=== PATIENT | female | born 1975 | race Caucasian/White ===

== ENCOUNTER → 2018-10-30 14:45 | Outpatient (CLI) | payer BC, SELFPAY ==
[2018-10-29 14:13] VITALS: BMI 48.0
--- OUTSIDE RECORDS SUMMARY | 2018-12-16 20:35 | XMS RPT_ITS ---
:1975 Author Organization OHIP Care Team Providers Name Role Phone ARIEL BABCOCK Referring Unavailable ARIEL BABCOCK Attending Unavailable ARIEL BABCOCK Referring Unavailable BABCOCKARIEL DUQUE Referring Unavailable LD BHARGAVI L (MEDICAL TRANSCRIPTION RADIOLOGY) Attending Unavailable CORNIELLO BHARGAVI L (MEDICAL TRANSCRIPTION RADIOLOGY) Attending Unavailable LD BHARGAVI L (MEDICAL TRANSCRIPTION RADIOLOGY) Referring Unavailable Alfonzo Anderson Attending Unavailable Alfonzo Anderson Attending Unavailable Alfonzo Anderson Referring Unavailable Earnest Mercado Attending Unavailable Alfonzo Anderson Attending Unavailable PROBLEMS PROBLEMS DATE TYPE CONDITION / CODE ATTENDING STATUS SOURCE 11/15/2018 Unknown H66.90 - Otitis Justin, Alfonzo Active [place] [facility], unspecified, Community unspecified ear / Hospital H66.90(ICD-10) Repository 11/15/2018 Unknown J40 - Bronchitis, Justin, Alfonzo Active [place] not specified as Community acute or chronic / Hospital J40(ICD-10) Repository 10/29/2018 Unknown J02.9 - Acute Justin, Alfonzo Active [place] pharyngitis, Community unspecified / Hospital J02.9(ICD-10) Repository 08/26/2018 Active Encounter for CORNYESICA, Active [facility] immunization / BHARGAVI L (MEDICAL TRANSCRIPTION RADIOLOGY) [facility] [place] Z23(ICD-10) Repository 05/29/2018 Active 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 [facility] [place] / D50.8(ICD-10) Repository 05/29/2018 Active Dysmenorrhea, NA Active [facility] unspecified / [facility] [place] N94.6(ICD-10) Repository 01/28/2016 Active Pure NA Active [facility] hypercholesterolemi [facility] [place] a, unspecified / Repository E78.00(ICD-10) 04/28/2015 Active Proteinuria, NA Active [facility] unspecified / [facility] [place] R80.9(ICD-10) Repository 05/18/2018 Active 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 [facility] [place] therapy / Repository Z79.899(ICD-10) 05/18/2018 Active Essential (primary) NA Active [facility] hypertension / [facility] [place] I10(ICD-10) Repository 05/18/2018 Active Vitamin D NA Active [facility] deficiency, [facility] [place] unspecified / Repository E55.9(ICD-10) 05/18/2018 Active Other fatigue / NA Active [facility] R53.83(ICD-10) [place] Repository 05/18/2018 Active Type 2 diabetes NA Active [facility] mellitus without [facility] [place] complications / Repository E11.9(ICD-10) PROCEDURES PROCEDURES No Procedure Records FoundRESULTS RESULTS URGENT CARE VISIT Observed: 11/15/2018 Status: F Source: [place] REPORT 5:56 PM [facility] REPOSITORY [facility] [address] [place] [address] 6 [place] [address] OFFICE VISIT Date of Service: 11/15/18 MR#: [id number] Acct: [id number] Name: JACKY LOPEZ Rep #: [id number] : 1975 Provider: Alfonzo GAN Age/Sex: 43/F [facility] [facility] Status: Signed Intake Vital Signs11/15/18 Body Mass Index (BMI) 48.0 Intake Visit Reasons: EARACHE Chief Complaint: Earache Professor Of Counseling Required: No Accompanied by: Self Is patient in pain?: No Allergies No Known Allergies Allergy (Unverified 11/15/18 17:49) Medications glimepiride 2 mg tablet 2 mg PO QAM 01/03/18 [History Confirmed 11/15/18] sitagliptin 50 mg-metformin 1,000 mg tablet 1 tab PO BID 01/03/18 [History Confirmed 11/15/18] cephalexin 500 mg capsule 500 mg PO Q12H 10 Days #20 cap 11/15/18 [Rx Confirmed 11/15/18] fluticasone 50 mcg/actuation nasal spray,suspension 2 spray INTRANASAL DAILY #9.9 g 11/15/18 [Rx Confirmed 11/15/18] PFSH Medical History History of leukemia (Acute) history of hip graphing (Acute) Surgical History History of hip replacement (Acute) Social History Smoking Status: Never smoker alcohol intake: never HPI HPI Chief Complaint: Earache Details: JACKY LOPEZ, is a 43 F who presents to the office today for complaint of right ear pain. Patient states that she typically has an ear infection and uses Flonase which does help however she ran out of Flonase recently and now has had pain to the right ear for the past week. She denies any otorrhea or hearing change/loss. She has had no fever, chills, sweats. No nausea, vomiting, diarrhea. No other associated symptoms or alleviating/aggravating factors. ROS Const Constitutional: No chills, fever(s), fatigue or abnormal sleep pattern ENT ENT: Positive for ear pain; no ear discharge, nasal discharge, nasal congestion or sore throat Resp Respiratory: No shortness of breath or chest congestion Cardio Cardiology: No chest pain at rest, chest pain with exertion or shortness of breath Skin Skin: No wounds or lesions Neuro Neurology: No behavioral changes or confusion Psych Psychiatric: No behavioral changes, No confusion, No abnormal sleep pattern Endo Endocrine: No fatigue Exam Const General: cooperative, healthy appearing [facility] Head: normocephalic, atraumatic Ears: hearing grossly normal bilaterally, EAC's normal, TM abnormal bulging on the right, erythematous on the right and dull on the right Nose: external nose normal Face and sinus: face symmetric, normal facial exam Mouth: oral mucosae normal Throat: posterior oropharynx normal Eyes General: appearance normal, both eyes and all related structures Pupils: PERRL Resp Effort AND Inspection: normal respiratory effort Auscultation: Bilateral: Clear to Auscultation Cardio Palpation: normal PMI Rate: regular rate Rhythm: regular rhythm Skin General: no rashes or lesions noted Neuro General: alert, CN's II-XI intact bilaterally Psych Appearance: grossly normal Mental Status: mental status grossly normal Assessment AND Plan Problems 1. Other non-recurrent acute nonsuppurative otitis media of right ear H65.191 Status Acute Plan Keflex as prescribed today. Encouraged to get plenty of rest, drink lots of clear liquids, and use Tylenol or Ibuprofen (unless contraindicated) for fever and comfort. Patient also educated on other symptomatic management techniques. To be seen in 7-10 days if no improvement; sooner if worsening of symptoms. Patient advised of potential red flags and when appropriate to report to the ED. Patient verbalized understanding and agreement with all the above. Medications New: fluticasone 50 mcg/actuation (Flonase Aller2 sprays Intranasal DAILY 9.9 grams 0RF J40 gy Relief) administer into each nostril Coding Level of Care Code Off vis,est,level 3 Diagnoses Other non-recurrent acute nonsuppurative otitis media of right ear H65.191 Otitis media type: other nonsuppurative Chronicity: acute Laterality: right Recurrence: non-recurrent 11/15/18 1756 <Electronically signed by Alfonzo GAN> Date Alfonzo GAN Cosigner Signature: Date (if applicable) CC: URGENT CARE VISIT Observed: 10/29/2018 Status: F Source: [place] REPORT 3:10 PM [facility] REPOSITORY [facility] [address] [place] [address] OFFICE VISIT Date of Service: 10/29/18 MR#: [id number] Acct: [id number] Name: JCAKY LOPEZ Rep #: [id number] : 1975 Provider: Alfonzo GAN Age/Sex: 43/F Location[place] [facility] Status: Signed Intake Vital Signs10/29/18 Height 5 ft 7 in 10/29/18 Weight: 307 lb 10/29/18 Body Mass Index (BMI) 48.0 Intake Visit Reasons: STREP Professor Of Counseling Required: No Accompanied by: self Is patient in pain?: No Allergies No Known Allergies Allergy (Unverified 10/29/18 14:14) Medications glimepiride 2 mg tablet 2 mg PO QAM 01/03/18 [History Confirmed 01/03/18] sitagliptin 50 mg-metformin 1,000 mg tablet 1 tab PO BID 01/03/18 [History Confirmed 01/03/18] amoxicillin 500 mg capsule 500 mg PO BID 10 Days #20 cap 10/29/18 [Rx Confirmed 10/29/18] PFSH Medical History History of leukemia (Acute) history of hip graphing (Acute) Surgical History History of hip replacement (Acute) Social History Smoking Status: Never smoker alcohol intake: never HPI HPI Details: JACKY LOPEZ, is a 43 F who presents to the office today for complaint of sore throat for the past 24 hours. Patient states that she had a son who was diagnosed with strep throat at the end of last week and then she started to develop symptoms 2 days later. She describes the sore throat as sharp type pain which is made worse with swallowing. She denies fever, chills, sweats. No nausea, vomiting, diarrhea. No other associated symptoms or alleviating/aggravating factors. ROS Const Constitutional: No fever(s), headache(s), anorexia, chills or abnormal sleep pattern ENT ENT: Positive for post nasal drip, sore throat, nasal congestion and nasal discharge; no headache(s) or ear pain Resp Respiratory: No shortness of breath Cardio Cardiology: No irregular heart rhythm or palpitations Gastro GI: No nausea/dyspepsia Neuro Neurology: No headache(s) or behavioral changes Psych Psychiatric: No abnormal sleep pattern, No behavioral changes Exam Const General: cooperative, healthy appearing [facility] Head: normal to inspection Ears: hearing grossly normal bilaterally, TM's normal bilaterally, EAC's normal Nose: external nose normal, nasal discharge clear Mouth: oral mucosae normal Throat: abnormal tonsil bilaterally Resp Effort AND Inspection: normal respiratory effort Auscultation: Bilateral: Clear to Auscultation Cardio Palpation: normal PMI Rate: regular rate Rhythm: regular rhythm Neuro General: CN's II-XI intact bilaterally, alert Psych Appearance: grossly normal Mental Status: mental status grossly normal Results BMSRAPIDSTREPA Office Rapid Strep A Negative Last Edit by Hellen Haley on 10/29/18 14:17 Assessment AND Plan Problems 1. Acute pharyngitis, unspecified etiology J02.9 Status Acute Plan Negative rapid strep in the office today. Amoxicillin as prescribed today due to patient's close proximity with patient with positive strep. Encouraged to get plenty of rest, drink lots of clear liquids, and use Tylenol or Ibuprofen (unless contraindicated) for fever and comfort. Patient also educated on other symptomatic management techniques. To be seen in 7-10 days if no improvement; sooner if worsening of symptoms. Patient advised of potential red flags and when appropriate to report to the ED. Orders Orders: Medications New: Coding Level of Care Code Off vis,est,level 3 Diagnoses Acute pharyngitis, unspecified etiology J02.9 Pharyngitis/tonsillitis etiology: unspecified etiology 10/29/18 1510 <Electronically signed by Alfonzo GAN> Date Alfonzo GAN Cosigner Signature: Date (if applicable) CC: Observed: 10/29/2018 Status: F Source: [place], R/O STREP A 2:00 PM [facility] REPOSITORY CHARLIE Culture No Group A Beta Streptococcus isolated. * This cultures intended use is to screen for Beta Streptococcus A only. All other pathogens and potential pathogens will not be screened for or reported. If a complete workup of all potential pathogens is indicated an order for a routine throat culture is required. Performed By: #### M100.010 #### [facility] [place], [address] PROGRESS Observed: 09/12/2018 Status: COMPLETED Source: [place] 9:47 AM [facility] [place] [place] REPOSITORY HNO ID: [id number] Author: Nurys Ta Cma Service: (none) Author Type: (none) Type: Progress Notes Filed: 09/12/2018 9:47 AM Note Text: Patient informed and verbalizes understanding PROGRESS Observed: 08/26/2018 Status: COMPLETED Source: [place] 2:40 PM [facility] REPOSITORY HNO ID: [id number] Author: Bhargavi Cruz (Dictating Machine Mechanic) Ld Service: (none) Author Type: Nurse Practitioner Type: Progress Notes Filed: 08/26/2018 2:53 PM Note Text: HPI/CC: Jacky Lopez is a 43 year old female who presents for right breast abscess Recheck (follow up) and Imm/Inj (Flu Vaccine). Continues antibiotic. No further fevers, chills, nausea. Right breast abscess improving, decreased drainage and erythema. Reports loose stools from antibiotic- is taking a probiotic. ROS as above, otherwise non-contributory. Reviewed PMHx, PSHx, social Hx, medications and allergies. PHYSICAL EXAMINATION: BP 136/82 Pulse 80 Resp 16 Wt (!) 139.3 kg (307 lb) LMP 08/10/2018 (Approximate) BMI 48.66 kg/m? General appearance: Well appearing, alert, in no acute distress, well-hydrated, well nourished. Skin: right breast fold with erythema, significantly improved since last OV. No warmth to palpation, no drainage or tenderness, soft to palpation. ASSESSMENT/PLAN: 1. Abscess - ICD9: 682.9, ICD10: L02.91 (primary diagnosis) - Continue treatment with Clindamycin - Follow up for recheck in prn - continue probiotic 2. Need for vaccination - ICD9: V05.9, ICD10: Z23 - INFLUENZA VACCINE QUADRIVALENT AGE 3 YRS PLUS + IM Bhargavi Jaffe, STRINGS TEACHER.MEDICAL TRANSCRIPTION RADIOLOGY PROGRESS Observed: 08/26/2018 Status: COMPLETED Source: [place] 2:35 PM [facility] HNO ID: [id number] Author: Noe Peña LPN Service: (none) Author Type: (none) Type: Progress Notes Filed: 08/26/2018 2:53 PM Note Text: 43 year old female here for INACTIVATED INFLUENZA VACCINE. 9143-4155 Season Patient is identified by name and date of : Yes [] CONTRAINDICATIONS color enhanced section Age less than 6 months? No Allergy to eggs, chicken, chicken feathers, or chicken dander? No Allergy to thimerosal (a preservative) or formaldehyde, gelatin? No History of severe reaction to any vaccine component or a previous dose of influenza vaccination? No History of Guillain-[place] Syndrome within 6 weeks after a previous influenza vaccine? No Patient is not moderately or severely ill? No Current temperature greater or equal to 100.4F? No History of Bone Marrow Transplant prior 6 months or solid organ transplant in the past 3 months ? No History of fainting after a prior injection or medical procedure? No- ? If patient has fainted in the past, the CDC recommends sitting or lying down for 15 minutes after the vaccination. [] VERIFICATION color enhanced section Was the answer Yes for any of the above contraindications? No contraindications present. Acceptable to proceed with vaccine. Patient/guardian agrees the above answers are true to the best of their knowledge? Yes Flu vaccine information sheet given? Yes See immunization activity in [facility] for details of immunizations adminstered today. Patient age: [age] year old For The 7507-8383 Flu Season 6-35 months old: Fluzone 0.25 ml - IM (Preservative Free) 3 years of age: Fluzone 0.5 ml - IM (Preservative Free) 3 years and older: Fluzone 0.5 ml- IM-(with Preservatives) 65+ years old: 2-49 years old Fluzone High-Dose 0.5 ml - IM (Preservative Free) FLUMIST- intranasal REMEMBER: If patient is less than 9 years of age and this is the first vaccine of Influenza to be received in any flu season, they should receive a second dose in one months time. CNOV Observed: 08/26/2018 Status: COMPLETED Source: [place] 2:20 PM [facility] REPOSITORY [facility] JACKY LOPEZ ([id number]) 1975 F Date Time Provider Department 08/26/18 2:20 PM BHARGAVI JAFFE ([facility]) FAMP[facility] During your visit today, we recorded the following information about you: Pulse Respiration Blood pressure Weight 80/minute 16/minute 136/82 139.3 kg Noe Peña CARINE 08/26/2018 2:53 PM Signed 43 year old female here for INACTIVATED INFLUENZA VACCINE. Season Patient is identified by name and date of : Yes [] CONTRAINDICATIONS color enhanced section Age less than 6 months? No Allergy to eggs, chicken, chicken feathers, or chicken dander? No Allergy to thimerosal (a preservative) or formaldehyde, gelatin? No History of severe reaction to any vaccine component or a previous dose of influenza vaccination? No History of Guillain-[place] Syndrome within 6 weeks after a previous influenza vaccine? No Patient is not moderately or severely ill? No Current temperature greater or equal to 100.4F? No History of Bone Marrow Transplant prior 6 months or solid organ transplant in the past 3 months ? No History of fainting after a prior injection or medical procedure? No- ? If patient has fainted in the past, the CDC recommends sitting or lying down for 15 minutes after the vaccination. [] VERIFICATION color enhanced section Was the answer Yes for any of the above contraindications? No contraindications present. Acceptable to proceed with vaccine. Patient/guardian agrees the above answers are true to the best of their knowledge? Yes Flu vaccine information sheet given? Yes See immunization activity in [facility] for details of immunizations adminstered today. Patient age: [age] year old For The 9480-3247 Flu Season 6-35 months old: Fluzone 0.25 ml - IM (Preservative Free) 3 years of age: Fluzone 0.5 ml - IM (Preservative Free) 3 years and older: Fluzone 0.5 ml- IM-(with Preservatives) 65+ years old: 2-49 years old Fluzone High-Dose 0.5 ml - IM (Preservative Free) FLUMIST- intranasal REMEMBER: If patient is less than 9 years of age and this is the first vaccine of Influenza to be received in any flu season, they should receive a second dose in one months time. Bhargavi Jaffe APRN.CNP 08/26/2018 2:53 PM Signed HPI/CC: Jacky Lopez is a 43 year old female who presents for right breast abscess Recheck (follow up) and Imm/Inj (Flu Vaccine). Continues antibiotic. No further fevers, chills, nausea. Right breast abscess improving, decreased drainage and erythema. Reports loose stools from antibiotic- is taking a probiotic. ROS as above, otherwise non-contributory. Reviewed PMHx, PSHx, social Hx, medications and allergies. PHYSICAL EXAMINATION: BP 136/82 Pulse 80 Resp 16 Wt (!) 139.3 kg (307 lb) LMP 08/10/2018 (Approximate) BMI 48.66 kg/m? General appearance: Well appearing, alert, in no acute distress, well-hydrated, well nourished. Skin: right breast fold with erythema, significantly improved since last OV. No warmth to palpation, no drainage or tenderness, soft to palpation. ASSESSMENT/PLAN: 1. Abscess - ICD9: 682.9, ICD10: L02.91 (primary diagnosis) - Continue treatment with Clindamycin - Follow up for recheck in prn - continue probiotic 2. Need for vaccination - ICD9: V05.9, ICD10: Z23 - INFLUENZA VACCINE QUADRIVALENT AGE 3 YRS PLUS + IM Bhargavi Jaffe APRN.CNP Referring Provider: BHARGAVI JAFFE (MEDICAL TRANSCRIPTION RADIOLOGY) [[id number]] Allergies As of Date: 08/26/2018 (No Known Allergies) Date Reviewed: 08/26/2018 Reviewed by: Noe Peña LPN - Fully Assessed Reason for Visit: Recheck [92] Cmt: follow up Imm/Inj [58] Cmt: Flu Vaccine Reason For Visit History Recorded Primary Visit Diagnosis:Abscess [L02.91] Other Visit Diagnosis:Need for vaccination [Z23] Order(s):INFLUENZA VACCINE QUADRIVALENT AGE 3 YRS PLUS + IM [85232IST] Order #: [id number] Prescriptions as of 08/26/2018 Sig: CLINDAMYCIN HCL 300 MG CAPSULE Take 1 capsule by mouth three* GLIMEPIRIDE 4 MG TABLET TAKE 1 TABLET BY MOUTH TWICE * FENOFIBRATE MICRONIZED 130 MG* TAKE 1 CAPSULE BY MOUTH ONCE * LOSARTAN 25 MG TABLET Take 1 tablet by mouth once d* METOPROLOL TARTRATE 25 MG TAB* Take 1 tablet by mouth twice * DULAGLUTIDE 1.5 MG/0.5 ML SUB* Inject 1.5 mg subcutaneously * EZETIMIBE 10 MG TABLET Take 1 tablet by mouth once d* FUROSEMIDE 20 MG TABLET Take 1-2 tablets by mouth onc* JANUMET 50 MG-1,000 MG TABLET TAKE 1 TABLET BY MOUTH TWICE * TRIAMTERENE 37.5 MG-HYDROCHLO* TAKE 1 TABLET BY MOUTH ONCE D* PEN NEEDLE, DIABETIC, SAFETY * Use one needle for each dose.* TRIAMCINOLONE ACETONIDE 0.1 %* Apply 1 application to affect* PHENTERMINE 37.5 MG TABLET Take 1 tablet by mouth once d* FLUTICASONE 50 MCG/ACTUATION * Use 2 Sprays in each nostril * ALBUTEROL SULFATE HFA 90 MCG/* Inhale 2 Puffs as instructed * BLOOD SUGAR DIAGNOSTIC STRIPS Test blood sugar(s) 1 times d* LANCETS Test blood sugar(s) 1 times d* FLAXSEED 1,000 MG CAPSULE Take 2,000 mg by mouth once d* OMEGA-3 FATTY ACIDS-FISH OIL * Take 2 capsules by mouth once* BIOTIN 5 MG TABLET Take 2 tablets by mouth once * CHROMIUM 200 MCG TABLET Take 1,000 mcg by mouth once * LANCETS Test blood sugar(s) 1 times d* GLUCOSAMINE COMPLEX ORAL Take by mouth as directed. POTASSIUM ORAL Take by mouth as needed. CHERYL-C ORAL Take by mouth as directed. Problem List As Of Date 08/26/2018 Noted Resolved DM (diabetes mellitus screen) [Z13.1] INVALID FOR*04/21/2015 HTN (hypertension) [I10] INVALID FOR* Diabetes mellitus type 2, controlled, without c*INVALID FOR* Hypercholesterolemia [E78.00] INVALID FOR* Albuminuria [R80.9] INVALID FOR* Morbid (severe) obesity due to excess calories *INVALID FOR* Letter Text [facility] [address] [id number] TO WHOM IT MAY CONCERN: This is to confirm that Jacky Lopez had an appointment and was seen at the [facility] in the Department of Family Medicine Bhargavi Jaffe CNP on 08/26/2018. Please excuse her for this appointment. Sincerely yours, Bhargavi Jaffe CNP Encounter Status:Closed by BHARGAVI JAFFE CNP on 08/26/18 PROGRESS Observed: 08/23/2018 Status: COMPLETED Source: [place] 1:00 PM [facility] REPOSITORY HNO ID: [id number] Author: Bhargavi Doan) Ld Service: (none) Author Type: Nurse Practitioner Type: Progress Notes Filed: 08/23/2018 1:04 PM Note Text: HPI?CC: Jacky Lopez is a 43 year old female who presents for infected boil- right breast. Reports redness, pain, drainage, warmth to touch, pain under right breast. Drainage was white thick with a foul odor. Reports fever, nausea and chills. Attempted manual manipulation and topical antibiotic cream. ROS as above, otherwise non-contributory. Reviewed PMHx, PSHx, social Hx, medications and allergies. PHYSICAL EXAMINATION: BP 136/72 (BP Site: Right Leg, BP Position: Sitting, BP Cuff Size: Large Adult) Pulse 87 Temp (!) 35.6 ?C (96.1 ?F) Resp 12 Wt (!) 140.6 kg (310 lb 0.6 oz) LMP 08/10/2018 (Approximate) SpO2 98% BMI 49.14 kg/m? General appearance: Well appearing, alert, in no acute distress, well-hydrated, well nourished. and Morbidly obese Skin: right breast fold with erythema, edema, warmth and tenderness to palpation. + yellow/green drainage from opening. Lungs: Lungs clear to auscultation. No wheezing, rhonchi, rales Heart: RRR without murmur, gallop, or rubs. No ectopy ASSESSMENT/PLAN: 1. Abscess - ICD9: 682.9, ICD10: L02.91 - Begin treatment with Clindamycin - No lymphangetic streaking, this was defined for patient to watch for and to seek medical care immediately if appears - Follow up for recheck in three days - CLINDAMYCIN HCL 300 MG CAPSULE Bhargavi Jaffe APRN.CNP PROGRESS Observed: 08/23/2018 Status: COMPLETED Source: [place] 11:18 AM [facility] REPOSITORY O ID: [id number] Author: Nurys Ta Cma Service: (none) Author Type: (none) Type: Progress Notes Filed: 08/23/2018 11:21 AM Note Text: [facility] TEAMLET DOCUMENTATION Provider Action/FYI: PSR Action/FYI: Call patient 1 week prior to appointment (added to personal calender) remind of labs (if not completed) Discuss HM (due for DM retinal exam) Teamlet has identified patient by name and date of . Team: Dr. Larry Overton Myself ? Last Office Visit:Visit date not found ? Next Office Visit: Visit date not found ? Last BP/Labs: Blood Pressure: Last 3 Encounter BP Readings: Date: BP: 08/22/2018 136/72 05/21/2018 134/80 05/07/2017 132/84 Lipids: Cholesterol, Total (mg/dL) Date Value 05/18/2018 223 02/08/2017 233 HDL Cholesterol (mg/dL) Date Value 05/18/2018 50 02/08/2017 50 LDL Cholesterol (mg/dL) Date Value 05/18/2018 129 02/08/2017 134 Triglyceride (mg/dL) Date Value 05/18/2018 221 02/08/2017 246 HGB A1C: Lab Results Component Value Date HBA1C 10.5 05/18/2018 HBA1C 10.5 02/08/2017 HBA1C 8.5 01/27/2016 TSH: TSH (uU/mL) Date Value 05/18/2018 1.790 02/08/2017 3.030 ) Care Gap: DM HTN Hypercholesterolemia Plan: ? Confirm PCP / Status - active ? Type of appointment needed: follow up appointment with pcp scheduled for 09/18/2018 call patient and remind of upcoming appointment with labs prior. ? Consultation Appointments: n/a Labs, HM and Immunization: Health Maintenance Due: ONE PNEUMOVAX PRIOR TO AGE 65 due on 1993 BP CONTROLLED (<130/80) due on 1995 DTAP,TDAP,TD(1 - Tdap) due on 1996 DIABETIC FOOT EXAM due on 04/28/2016 DILATED RETINAL EXAM due on 09/02/2016 INFLUENZA(1) due on 07/20/2018 HBA1C due on 08/18/2018 - ordered Nurys Ta Cma CNPTOUTREACH Observed: 08/23/2018 Status: COMPLETED Source: [place] 12:00 AM [facility] REPOSITORY Patient Outreach (INTMWS) JACKY LOPEZ ([id number]) 1975 F Date Time Provider Department 08/23/18 NURYS TA ([facility]) INTMWS During your visit today, we recorded the following information about you: Nurys Ta Cma 08/23/2018 11:21 AM Signed PHMA TEAMLET DOCUMENTATION Provider Action/FYI: PSR Action/FYI: Call patient 1 week prior to appointment (added to personal calender) remind of labs (if not completed) Discuss HM (due for DM retinal exam) Teamlet has identified patient by name and date of . Team: Dr. Larry Overton Myself ? Last Office Visit:Visit date not found ? Next Office Visit: Visit date not found ? Last BP/Labs: Blood Pressure: Last 3 Encounter BP Readings: Date: BP: 08/22/2018 136/72 05/21/2018 134/80 05/07/2017 132/84 Lipids: Cholesterol, Total (mg/dL) Date Value 05/18/2018 223 02/08/2017 233 HDL Cholesterol (mg/dL) Date Value 05/18/2018 50 02/08/2017 50 LDL Cholesterol (mg/dL) Date Value 05/18/2018 129 02/08/2017 134 Triglyceride (mg/dL) Date Value 05/18/2018 221 02/08/2017 246 HGB A1C: Lab Results Component Value Date HBA1C 10.5 05/18/2018 HBA1C 10.5 02/08/2017 HBA1C 8.5 01/27/2016 TSH: TSH (uU/mL) Date Value 05/18/2018 1.790 02/08/2017 3.030 ) Care Gap: DM HTN Hypercholesterolemia Plan: ? Confirm PCP / Status - active ? Type of appointment needed: follow up appointment with pcp scheduled for 09/18/2018 call patient and remind of upcoming appointment with labs prior. ? Consultation Appointments: n/a Labs, HM and Immunization: Health Maintenance Due: ONE PNEUMOVAX PRIOR TO AGE 67 due on 1993 BP CONTROLLED (<130/80) due on 1995 DTAP,TDAP,TD(1 - Tdap) due on 1996 DIABETIC FOOT EXAM due on 04/28/2016 DILATED RETINAL EXAM due on 09/02/2016 INFLUENZA(1) due on 07/20/2018 HBA1C due on 08/18/2018 - ordered Nurys Ta National Business Director Nurys Kotlik [facility] 09/12/2018 9:47 AM Signed Patient informed and verbalizes understanding Allergies As of Date: 08/23/2018 (No Known Allergies) Date Reviewed: 08/22/2018 Reviewed by: Meagan Brady LPN - Fully Assessed Reason for Visit: PHMA/Care Gap Outreach [[id number]] Prescriptions as of 08/23/2018 Sig: CLINDAMYCIN HCL 300 MG CAPSULE Take 1 capsule by mouth three* GLIMEPIRIDE 4 MG TABLET TAKE 1 TABLET BY MOUTH TWICE * FENOFIBRATE MICRONIZED 130 MG* TAKE 1 CAPSULE BY MOUTH ONCE * LOSARTAN 25 MG TABLET Take 1 tablet by mouth once d* METOPROLOL TARTRATE 25 MG TAB* Take 1 tablet by mouth twice * DULAGLUTIDE 1.5 MG/0.5 ML SUB* Inject 1.5 mg subcutaneously * EZETIMIBE 10 MG TABLET Take 1 tablet by mouth once d* FUROSEMIDE 20 MG TABLET Take 1-2 tablets by mouth onc* JANUMET 50 MG-1,000 MG TABLET TAKE 1 TABLET BY MOUTH TWICE * TRIAMTERENE 37.5 MG-HYDROCHLO* TAKE 1 TABLET BY MOUTH ONCE D* PEN NEEDLE, DIABETIC, SAFETY * Use one needle for each dose.* TRIAMCINOLONE ACETONIDE 0.1 %* Apply 1 application to affect* PHENTERMINE 37.5 MG TABLET Take 1 tablet by mouth once d* FLUTICASONE 50 MCG/ACTUATION * Use 2 Sprays in each nostril * ALBUTEROL SULFATE HFA 90 MCG/* Inhale 2 Puffs as instructed * BLOOD SUGAR DIAGNOSTIC STRIPS Test blood sugar(s) 1 times d* LANCETS Test blood sugar(s) 1 times d* FLAXSEED 1,000 MG CAPSULE Take 2,000 mg by mouth once d* OMEGA-3 FATTY ACIDS-FISH OIL * Take 2 capsules by mouth once* BIOTIN 5 MG TABLET Take 2 tablets by mouth once * CHROMIUM 200 MCG TABLET Take 1,000 mcg by mouth once * LANCETS Test blood sugar(s) 1 times d* GLUCOSAMINE COMPLEX ORAL Take by mouth as directed. POTASSIUM ORAL Take by mouth as needed. CHERYL-C ORAL Take by mouth as directed. Problem List As Of Date 08/23/2018 Noted Resolved DM (diabetes mellitus screen) [Z13.1] INVALID FOR*04/21/2015 HTN (hypertension) [I10] INVALID FOR* Diabetes mellitus type 2, controlled, without c*INVALID FOR* Hypercholesterolemia [E78.00] INVALID FOR* Albuminuria [R80.9] INVALID FOR* Morbid (severe) obesity due to excess calories *INVALID FOR* Encounter Status:Closed by NURYS TA CMA on 08/23/18 ANNEMARIE Observed: 08/22/2018 Status: COMPLETED Source: [place] 2:40 PM [facility] RE[facility]ITORY [facility] JACKY LOPEZ ([id number]) 1975 F Date Time Provider Department 08/22/18 2:40 PM BHARGAVI JAFFE (MARY) TAMIE During your visit today, we recorded the following information about you: Temperature Pulse Respiration Blood pressure 96.1 degrees 87/minute 12/minute 136/72 Weight Last Period 140.6 kg 08/10/18 Bhargavi Jaffe APRN.CNP 08/23/2018 1:04 PM Signed HPI?CC: Jacky Lopez is a 43 year old female who presents for infected boil- right breast. Reports redness, pain, drainage, warmth to touch, pain under right breast. Drainage was white thick with a foul odor. Reports fever, nausea and chills. Attempted manual manipulation and topical antibiotic cream. ROS as above, otherwise non-contributory. Reviewed PMHx, PSHx, social Hx, medications and allergies. PHYSICAL EXAMINATION: BP 136/72 (BP Site: Right Leg, BP Position: Sitting, BP Cuff Size: Large Adult) Pulse 87 Temp (!) 35.6 ?C (96.1 ?F) Resp 12 Wt (!) 140.6 kg (310 lb 0.6 oz) LMP 08/10/2018 (Approximate) SpO2 98% BMI 49.14 kg/m? General appearance: Well appearing, alert, in no acute distress, well-hydrated, well nourished. and Morbidly obese Skin: right breast fold with erythema, edema, warmth and tenderness to palpation. + yellow/green drainage from opening. Lungs: Lungs clear to auscultation. No wheezing, rhonchi, rales Heart: RRR without murmur, gallop, or rubs. No ectopy ASSESSMENT/PLAN: 1. Abscess - ICD9: 682.9, ICD10: L02.91 - Begin treatment with Clindamycin - No lymphangetic streaking, this was defined for patient to watch for and to seek medical care immediately if appears - Follow up for recheck in three days - CLINDAMYCIN HCL 300 MG CAPSULE Bhargavi Jaffe APRN.CNP Referring Provider: SELF [200] Allergies As of Date: 08/22/2018 (No Known Allergies) Date Reviewed: 08/22/2018 Reviewed by: Meagan Brady LPN - Fully Assessed Reason for Visit: infected boil [Other] Primary Visit Diagnosis:Abscess [L02.91] Order(s):clindamycin (CLEOCIN) 300 mg capsuleTake 1 capsule by mouth three times daily for 10 days.Disp: 30 capsuleRfl: 0 Prescriptions as of 08/22/2018 Sig: GLIMEPIRIDE 4 MG TABLET TAKE 1 TABLET BY MOUTH TWICE * FENOFIBRATE MICRONIZED 130 MG* TAKE 1 CAPSULE BY MOUTH ONCE * LOSARTAN 25 MG TABLET Take 1 tablet by mouth once d* METOPROLOL TARTRATE 25 MG TAB* Take 1 tablet by mouth twice * DULAGLUTIDE 1.5 MG/0.5 ML SUB* Inject 1.5 mg subcutaneously * EZETIMIBE 10 MG TABLET Take 1 tablet by mouth once d* FUROSEMIDE 20 MG TABLET Take 1-2 tablets by mouth onc* JANUMET 50 MG-1,000 MG TABLET TAKE 1 TABLET BY MOUTH TWICE * TRIAMTERENE 37.5 MG-HYDROCHLO* TAKE 1 TABLET BY MOUTH ONCE D* PEN NEEDLE, DIABETIC, SAFETY * Use one needle for each dose.* TRIAMCINOLONE ACETONIDE 0.1 %* Apply 1 application to affect* FLUTICASONE 50 MCG/ACTUATION * Use 2 Sprays in each nostril * ALBUTEROL SULFATE HFA 90 MCG/* Inhale 2 Puffs as instructed * BLOOD SUGAR DIAGNOSTIC STRIPS Test blood sugar(s) 1 times d* LANCETS Test blood sugar(s) 1 times d* FLAXSEED 1,000 MG CAPSULE Take 2,000 mg by mouth once d* OMEGA-3 FATTY ACIDS-FISH OIL * Take 2 capsules by mouth once* BIOTIN 5 MG TABLET Take 2 tablets by mouth once * CHROMIUM 200 MCG TABLET Take 1,000 mcg by mouth once * LANCETS Test blood sugar(s) 1 times d* GLUCOSAMINE COMPLEX ORAL Take by mouth as directed. POTASSIUM ORAL Take by mouth as needed. CHERYL-C ORAL Take by mouth as directed. CLINDAMYCIN HCL 300 MG CAPSULE Take 1 capsule by mouth three* PHENTERMINE 37.5 MG TABLET Take 1 tablet by mouth once d* Problem List As Of Date 08/22/2018 Noted Resolved DM (diabetes mellitus screen) [Z13.1] INVALID FOR*04/21/2015 HTN (hypertension) [I10] INVALID FOR* Diabetes mellitus type 2, controlled, without c*INVALID FOR* Hypercholesterolemia [E78.00] INVALID FOR* Albuminuria [R80.9] INVALID FOR* Morbid (severe) obesity due to excess calories *INVALID FOR* Prescriptions ordered this encounter Disp Refills Start End CLINDAMYCIN HCL 300 MG CAPSULE 30 c* 0 08/22/2018 09/01/2018 Route: ORAL Sig: Take 1 capsule by mouth three times daily for 10 days. Encounter Status:Closed by BHARGAVI JAFFE CNP on 08/23/18 CNCO Observed: 08/22/2018 Status: COMPLETED Source: [place] 12:00 AM [facility] REPOSITORY Letter Text [facility] [address], [place] [address] Jacky Lopez [phone] [facility] [address] 08/22/2018 To Whom It May Concern: Please excuse patient from work today 08-22-18 PM and tomorrow 08-23-18 due to illness. Patient was seen in our office today 08-22-18. If you have any questions please feel free to call the office [phone]. Thank you, Bhargavi Jaffe CNP/Meagan Brady LPN PROGRESS Observed: 07/24/2018 Status: COMPLETED Source: [place] 10:26 AM [facility] REPOSITORY HNO ID: [id number] Author: Nurys Ta Cma Service: (none) Author Type: (none) Type: Progress Notes Filed: 07/26/2018 8:48 AM Note Text: Please file labs. I spoke with Jacky and reminded her of her upcoming appointment and to get labs done prior. She will do so. I asked about her DM retinal exam and she states she hasn't had one done in a few years. I encouraged her to schedule this appointment. PROGRESS Observed: 07/24/2018 Status: COMPLETED Source: [place] 10:21 AM [facility] REPOSITORY HNO ID: [id number] Author: Nurys Ta Cma Service: (none) Author Type: (none) Type: Progress Notes Filed: 07/26/2018 8:48 AM Note Text: PHMA TEAMLET DOCUMENTATION Provider Action/FYI: Please file labs for upcoming appointment 08/21/18. Please advise if wanting additional labs. PSR Action/FYI: Pended labs - Hgba1c, CMP Call patient to remind of labs, and discuss DM retinal exam. Teamlet has identified patient by name and date of . Team: Dr. Larry Overton ? Last Office Visit:05/31/2018 ? Next Office Visit: 08/21/2018 ? Last BP/Labs: Blood Pressure: Last 3 Encounter BP Readings: Date: BP: 05/21/2018 134/80 05/07/2017 132/84 04/04/2017 130/84 Lipids: Cholesterol, Total (mg/dL) Date Value 05/18/2018 223 02/08/2017 233 HDL Cholesterol (mg/dL) Date Value 05/18/2018 50 02/08/2017 50 LDL Cholesterol (mg/dL) Date Value 05/18/2018 129 02/08/2017 134 Triglyceride (mg/dL) Date Value 05/18/2018 221 02/08/2017 246 HGB A1C: Lab Results Component Value Date HBA1C 10.5 05/18/2018 HBA1C 10.5 02/08/2017 HBA1C 8.5 01/27/2016 TSH: TSH (uU/mL) Date Value 05/18/2018 1.790 02/08/2017 3.030 ) Care Gap: DM - Last HGBA1C is NOT under 9% HTN Plan: ? Confirm PCP / Status - active ? Type of appointment needed: none - has upcoming appointment viki. Needs labs prior (orders pending) ? Consultation Appointments: n/a Labs, HM and Immunization: Health Maintenance Due: ONE PNEUMOVAX PRIOR TO AGE 67 due on 1993 BP CONTROLLED (<130/80) due on 1995 - recheck at upcoming appointment DTAP,TDAP,TD(1 - Tdap) due on 1996 DIABETIC FOOT EXAM due on 04/28/2016 DILATED RETINAL EXAM due on 09/02/2016 INFLUENZA(1) due on 07/20/2018 Nurys Ta Cma CNPTOUTREACH Observed: 07/24/2018 Status: COMPLETED Source: [place] 12:00 AM [facility] REPOSITORY Patient Outreach (FAMPWS) JACKY LOPEZ ([id number]) 1975 F Date Time Provider Department 07/24/18 NURYS TA ([facility]) TAMIE During your visit today, we recorded the following information about you: Nurys Ta [facility] 07/26/2018 8:48 AM Signed PHMA TEAMLET DOCUMENTATION Provider Action/FYI: Please file labs for upcoming appointment 08/21/18. Please advise if wanting additional labs. PSR Action/FYI: Pended labs - Hgba1c, CMP Call patient to remind of labs, and discuss DM retinal exam. Teamlet has identified patient by name and date of . Team: Dr. Larry Overton ? Last Office Visit:05/31/2018 ? Next Office Visit: 08/21/2018 ? Last BP/Labs: Blood Pressure: Last 3 Encounter BP Readings: Date: BP: 05/21/2018 134/80 05/07/2017 132/84 04/04/2017 130/84 Lipids: Cholesterol, Total (mg/dL) Date Value 05/18/2018 223 02/08/2017 233 HDL Cholesterol (mg/dL) Date Value 05/18/2018 50 02/08/2017 50 LDL Cholesterol (mg/dL) Date Value 05/18/2018 129 02/08/2017 134 Triglyceride (mg/dL) Date Value 05/18/2018 221 02/08/2017 246 HGB A1C: Lab Results Component Value Date HBA1C 10.5 05/18/2018 HBA1C 10.5 02/08/2017 HBA1C 8.5 01/27/2016 TSH: TSH (uU/mL) Date Value 05/18/2018 1.790 02/08/2017 3.030 ) Care Gap: DM - Last HGBA1C is NOT under 9% HTN Plan: ? Confirm PCP / Status - active ? Type of appointment needed: none - has upcoming appointment viki. Needs labs prior (orders pending) ? Consultation Appointments: n/a Labs, HM and Immunization: Health Maintenance Due: ONE PNEUMOVAX PRIOR TO AGE 67 due on 1993 BP CONTROLLED (<130/80) due on 1995 - recheck at upcoming appointment DTAP,TDAP,TD(1 - Tdap) due on 1996 DIABETIC FOOT EXAM due on 04/28/2016 DILATED RETINAL EXAM due on 09/02/2016 INFLUENZA(1) due on 07/20/2018 Nurys Kotlik National Business Director Nurys Kotlik National Business Director 07/26/2018 8:48 AM Signed Please file labs. I spoke with Jacky and reminded her of her upcoming appointment and to get labs done prior. She will do so. I asked about her DM retinal exam and she states she hasn't had one done in a few years. I encouraged her to schedule this appointment. Allergies As of Date: 07/24/2018 (No Known Allergies) Date Reviewed: 05/21/2018 Reviewed by: Jodi Patel LPN - Fully Assessed Reason for Visit: PHMA/Care Gap Outreach [[id number]] Primary Visit Diagnosis:Controlled type 2 diabetes mellitus without complication, unspecified whether adjuster leader insulin use (HCC) [E11.9] Other Visit Diagnoses:Essential hypertension [I10] Hypercholesterolemia [E78.00] Order(s):HGB A1C [DQUOK8P] Order #: [id number] FUTURE COMP METABOLIC PANEL [SQCMP] Order #: [id number] FUTURE LIPID PANEL BASIC [SQLIPB] Order #: [id number] FUTURE Prescriptions as of 07/24/2018 Sig: GLIMEPIRIDE 4 MG TABLET TAKE 1 TABLET BY MOUTH TWICE * FENOFIBRATE MICRONIZED 130 MG* TAKE 1 CAPSULE BY MOUTH ONCE * LOSARTAN 25 MG TABLET Take 1 tablet by mouth once d* METOPROLOL TARTRATE 25 MG TAB* Take 1 tablet by mouth twice * DULAGLUTIDE 1.5 MG/0.5 ML SUB* Inject 1.5 mg subcutaneously * EZETIMIBE 10 MG TABLET Take 1 tablet by mouth once d* FUROSEMIDE 20 MG TABLET Take 1-2 tablets by mouth onc* JANUMET 50 MG-1,000 MG TABLET TAKE 1 TABLET BY MOUTH TWICE * TRIAMTERENE 37.5 MG-HYDROCHLO* TAKE 1 TABLET BY MOUTH ONCE D* PEN NEEDLE, DIABETIC, SAFETY * Use one needle for each dose.* TRIAMCINOLONE ACETONIDE 0.1 %* Apply 1 application to affect* PHENTERMINE 37.5 MG TABLET Take 1 tablet by mouth once d* FLUTICASONE 50 MCG/ACTUATION * Use 2 Sprays in each nostril * ALBUTEROL SULFATE HFA 90 MCG/* Inhale 2 Puffs as instructed * BLOOD SUGAR DIAGNOSTIC STRIPS Test blood sugar(s) 1 times d* LANCETS Test blood sugar(s) 1 times d* FLAXSEED 1,000 MG CAPSULE Take 2,000 mg by mouth once d* OMEGA-3 FATTY ACIDS-FISH OIL * Take 2 capsules by mouth once* BIOTIN 5 MG TABLET Take 2 tablets by mouth once * CHROMIUM 200 MCG TABLET Take 1,000 mcg by mouth once * LANCETS Test blood sugar(s) 1 times d* GLUCOSAMINE COMPLEX ORAL Take by mouth as directed. POTASSIUM ORAL Take by mouth as needed. CHERYL-C ORAL Take by mouth as directed. Problem List As Of Date 07/24/2018 Noted Resolved DM (diabetes mellitus screen) [Z13.1] INVALID FOR*04/21/2015 HTN (hypertension) [I10] INVALID FOR* Diabetes mellitus type 2, controlled, without c*INVALID FOR* Hypercholesterolemia [E78.00] INVALID FOR* Albuminuria [R80.9] INVALID FOR* Morbid (severe) obesity due to excess calories *INVALID FOR* Encounter Status:Closed by NURYS TA CMA on 07/26/18 PROGRESS Observed: 05/29/2018 Status: COMPLETED Source: [place] 10:41 AM [facility] RE[facility] O ID: [id number] Author: Fredi Voss Service: (none) Author Type: Candy Cooker Helper Type: Progress Notes Filed: 05/29/2018 10:41 AM Note Text: Radiology Service Progress Note PATIENT NAME: Jacky Lopez DATE OF SERVICE: May 29, 2018 TIME: 10:41 AM PATIENT IDENTITY VERIFICATION COMPLETED USING TWO (2) METHODS: Patient confirmed name verbally and Date of . PATIENT GENDER DATA: Female. status: : No status: N/A PATIENT RELEVANT IMPLANT DATA REVIEWED: Not Applicable RADIOLOGY DEPARTMENT: Ultrasound PERIPHERAL IV DATA: Not applicable SIGNED BY: FREDI VOSS RDMS RVAbraham May 29, 2018 10:41 AM US FEMALE PELVIS Observed: 05/29/2018 Status: F Source: [place] TRANSVA 10:39 AM [facility] REPOSITORY * * *Final Report* * * DATE OF EXAM: May 29 2018 10:39AM [facility] 1060 - US FEMALE PELVIS TRANSVAG / PROCEDURE REASON: multiple diagnoses * * * * Physician Interpretation * * * * EXAMINATION: US FEMALE PELVIS TRANSVAG CLINICAL HISTORY: Deficiency anemia. Dysmenorrhea Comparison: None RESULT: Transabdominal and endovaginal scans were performed. The uterus measures 10.7 x 5.9 x 4.7 cm. The endometrium measures 1.7 cm. Appearance may be secondary to secretory phase of cycle. The endomyometrial junction is somewhat poorly defined. Left ovary is not visualized with the transabdominal or endovaginal probe. Right ovary measures 3.7 x 3.2 x 4.5 cm. Simple 3.1 cm cyst is seen within it. Numerous nabothian cysts are noted. No free pelvic fluid. IMPRESSION: Thickened endometrium, may be secondary to secretory phase of cycle. Endomyometrial junction is somewhat poorly defined. Adenomyosis is a diagnostic possibility. MRI may be helpful for further evaluation if clinically indicated in this patient with anemia. Nonvisualization of the left ovary. Simple right ovarian cyst is likely simple follicular cyst. Drug Room Operator: LESLIE Transcribe Date/Time: May 29 2018 12:38P Dictated by : YOVANY STROUD MD This examination was interpreted and the report reviewed and electronically signed by: YOVANY STROUD MD on May 29 2018 12:43PM EST [id number] CNCO Observed: 05/29/2018 Status: COMPLETED Source: [place] 12:00 AM [facility] REPOSITORY Letter Text Dear Jacky Lpoez: How to activate your [facility] [employer] Account 1. Visit the [employer] Signup page at [email or web address] 2. Identify yourself using your one-time use activation code: [email or web address] 3. Follow the on-screen prompts to choose your own secure username and password The following information will be necessary to access your account for the first time: Information needed for sign-up: Your custom activation code used one-time only for the initial account set-up. Your date of The last 4 digits of your social security number What to do next: Fill in the requested information on the Identify Yourself Form at [email or web address] , click Next. Create your login and password, choose a [employer] ID and password that will be easy for you to use, but impossible for anyone else to guess. Pick a security question that will assist you in the event you forget your password the next time you log-on. If you have difficulty activating your account, please call our [employer] helpline at [phone] or toll free at . We hope you enjoy using [employer]! Kindest Regards, [facility] [employer] Team PROGRESS Observed: 05/21/2018 Status: COMPLETED Source: [place] 8:58 AM [facility] REPOSITORY HNO ID: [id number] Author: Ariel Babcock Service: (none) Author Type: Physician Type: Progress Notes Filed: 05/21/2018 9:42 AM Note Text: Patient presents with: Follow Up: 3 month weight HPI: Jacky Lopez is a 42 year old female who presents to the office today for review of health conditions. Concerns today: Morbid obesity, trying to cut out sugars and gluten from her diet more consistently, trying to start a probiotic Vitamin d deficiency, currently hasn;t restarted her vitamin d supplement Dyspareunia, comes and goes, heavy menstrual cycles for years, iron deficiency anemia is slightly worse, unable to tolerate oral iron supplement due to Nausea/GI upset. Hasn't seen ORTHOPHOTOGRAPHY TECHNICIAN recently, knows needs to schedule an appt Admits to not taking care of herself after her grandmother in Dec, she was like a mother to her Leg swelling, worse in summer, sits with legs down a lot at her new job at the [employer] Ms. Lopez has past history of diabetes. Since our last visit she denies excessive thirst or increased frequency of urination, chest pain or dyspnea , new or unusual visual symptoms and low sugar/hypoglycemic reactions. Follows a diabetic diet some of the time. She is not compliant with medication(s) but is tolerating med(s) without any side effects. She reports checking her glucose on a infrequent to not at all basis schedule. Patient's last HgA1C was Hemoglobin A1C (%) Date Value 05/18/2018 10.5 02/08/2017 10.5 ) Last Ophthalmology exam was within the past 12 months Ms. Lopez reports history of hyperlipidemia. Current therapy includes fenobibrate (Tricor) mg. Denies side effects of muscle weakness or achiness. Her most recent lipid panels are reviewed. Cholesterol, Total (mg/dL) Date Value 05/18/2018 223 HDL Cholesterol (mg/dL) Date Value 05/18/2018 50 LDL Cholesterol (mg/dL) Date Value 05/18/2018 129 Triglyceride (mg/dL) Date Value 05/18/2018 221 Ms. Lopez indicates a history of hypertension and states that she is feeling well and denies any symptoms referable to elevated blood pressure. Specifically denies headache, chest pain, palpitations, dyspnea and peripheral edema. Patient denies any side effects of her medication(s) and is compliant with their regimen. Last 3 Encounter BP Readings: Date: BP: 05/21/2018 134/80 05/07/2017 132/84 04/04/2017 130/84 She watches her diet for sodium, low fat and low cholesterol some of the time. She does not check BP's generally. Jacky gets minimal exercise. 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 Social History Main Topics Smoking status: Never Smoker Smokeless tobacco: Never Used Alcohol use: Yes Comment: Rarely Drug use: No Sexual activity: Yes Partners with: Male control/protection: None FAMILY HISTORY Problem Relation Age of Onset - Hypertension Maternal Grandmother - Hypertension Paternal Grandmother - Hypertension Mother - Stroke Paternal Grandmother - Thyroid Maternal Grandmother - Heart Maternal Grandmother AL - Heart Paternal Grandfather AL - Cancer Maternal Grandfather Melanoma Allergies: ALLERGIES No Known Allergies Current Meds: glimepiride (AMARYL) 4 mg tablet TAKE 1 TABLET BY MOUTH TWICE A DAY WITH MEALS JANUMET 50-1,000 mg per tablet TAKE 1 TABLET BY MOUTH TWICE DAILY WITH MEALS. losartan (COZAAR) 25 mg tablet Take 1 tablet by mouth once daily. triamterene-hydrochlorothiazide (MAXZIDE-25) 37.5-25 mg per tablet TAKE 1 TABLET BY MOUTH ONCE DAILY. dulaglutide (TRULICITY) 0.75 mg/0.5 mL pnij Inject 0.75 mg subcutaneously once each week. Inject dose once per week. Discard Pen After metoprolol tartrate, short acting, (LOPRESSOR) 25 mg tablet TAKE 1 TABLET BY MOUTH TWICE DAILY. triamcinolone acetonide (KENALOG) 0.1 % cream Apply 1 application to affected area twice daily as needed (rash on chest). Apply sparingly to area for rash/itching. fluticasone (FLONASE) 50 mcg/actuation nasal spray Use 2 Sprays in each nostril once daily. albuterol HFA (PROAIR HFA) 90 mcg/actuation inhaler Inhale 2 Puffs as instructed every 4 hours as needed. blood sugar diagnostic (BLOOD GLUCOSE TEST) test strip Test blood sugar(s) 1 times daily. Dx: DM2. Insulin: No Lancets lancets Test blood sugar(s) 1 times daily. Dx: Type 2 DM - Uncontrolled E11.65 Insulin: No flaxseed 1,000 mg cap Take 2,000 mg by mouth once daily. Brisbin-3 Fatty Acids, FISH OIL, (FISH OIL) 360-1,200 mg cap Take 2 capsules by mouth once daily. biotin 5 mg tab Take 2 tablets by mouth once daily. Chromium 200 mcg tab Take 1,000 mcg by mouth once daily. Lancets lancets Test blood sugar(s) 1 times daily. Dx: DM2. Insulin: No GLUCOSAMINE HCL AND SULFATE (GLUCOSAMINE COMPLEX ORAL) Take by mouth as directed. POTASSIUM ORAL Take by mouth as needed. ASCORBIC ACID (CHERYL-C ORAL) Take by mouth as directed. CONTRAVE 8-90 mg TbER TAKE 2 TABLETS BY MOUTH TWICE DAILY IN THE MORNING AND EVENING Fenofibrate Micronized 130 mg capsule Take 1 capsule by mouth once daily. Insulin Safety Kennard, Disp, (BD AUTOSHIELD PEN NEEDLE) 29 gauge x 3/16 ndle Use one needle for each dose. 2/day Phentermine HCl (ADIPEX-P) 37.5 mg tablet Take 1 tablet by mouth once daily. BMI 50 Review of Systems: The remainder of the review of systems is negative. PE: 05/21/18 0838 BP: 134/80 Pulse: 64 Resp: 20 Temp: 36.5 ?C (97.7 ?F) TempSrc: Left Tympanic Weight: (!) 142 kg (313 lb) Gen: AANDO, NAD, non-toxic appearing, Pleasant, cooperative, obese HEENT: NT/AC, PERRLA, EOMs intact b/l, nares clear and patent b/l, pharynx without erythema, exudate or lesions. Uvula midline.MMM Neck: supple, No cervical LAD, no thyromegaly, no carotid bruits CV: RRR, normal S1 and S2, no murmurs, no gallops, no rubs, Pulses 2+ and symmetric in UE and LE b/l Lungs: normal respiratory effort, CTA b/l, no wheezing or rhonchi or rales Abd: soft, NT, ND, +BS, no hepatosplenomegaly MS: FROM all 4 extremities Neuro: CN II-XII intact b/l, strength 5/5 b/l UE and LE, DTRs 2/4 UE and LE, sensation intact. Skin: warm, dry, intact, No rashes or lesions on exposed skin. Obese, non pitting leg edema, no calf pain Foot exam: Monofilament normal on right and left feet. ASSESSMENT/PLAN: 1. Uncontrolled type 2 diabetes mellitus without complication, without long-term current use of insulin (HCC) - ICD9: 250.02, ICD10: E11.65 (primary diagnosis) uncontrolled Poor adherence to plan of care. - Increase Trulicity - Blood glucose monitoring on a three times a day schedule - LOSARTAN 25 MG TABLET - DULAGLUTIDE 1.5 MG/0.5 ML SUBCUTANEOUS PEN INJECTOR 2. Hypercholesterolemia - ICD9: 272.0, ICD10: E78.00 - suboptimal control - Begin treatment with ezetimibe (Zetia) 10 mg - Encouraged following a low fat, low cholesterol diet. - Check fasting lipid panel and ALT in 12 weeks. - EZETIMIBE 10 MG TABLET 3. Hypertriglyceridemia - ICD9: 272.1, ICD10: E78.1 - poor control - Begin treatment with ezetimibe (Zetia) 10 mg - Encouraged following a low fat, low cholesterol diet. - Discussed the benefits of regular aerobic exercise and weight loss. - EZETIMIBE 10 MG TABLET 4. Albuminuria - ICD9: 791.0, ICD10: R80.9 - rx refilled, needs better blood glucose control as d/w her today - LOSARTAN 25 MG TABLET 5. Elevated LFTs - ICD9: 790.6, ICD10: R94.5 - related to diabetes and fatty liver, needs better glucose control 6. Essential hypertension - ICD9: 401.9, ICD10: I10 - good control - Continue current medication(s) - Encouraged dietary sodium restriction/DASH diet - Recommended regular aerobic exercise. - Recommend home blood pressure monitoring, to bring results in on next visit - Discussed need and benefit for weight loss. - Goal of BP <130/80 - METOPROLOL TARTRATE 25 MG TABLET 7. Other iron deficiency anemia - ICD9: 280.8, ICD10: D50.8 - pelvic US and f/u with ORTHOPHOTOGRAPHY TECHNICIAN - US FEMALE PELVIS TRANSABD LTD - US FEMALE PELVIS TRANSVAG 8. Dysmenorrhea - ICD9: 625.3, ICD10: N94.6 - see above - US FEMALE PELVIS TRANSABD LTD - US FEMALE PELVIS TRANSVAG 9. Bilateral leg edema - ICD9: 782.3, ICD10: R60.0 - rx prn as below - FUROSEMIDE 20 MG TABLET Ariel Babcock DO To ER if develops chest pain, shortness of breath, or severe worsening of symptoms. Discussed risks, benefits, alternatives, and potential side effects of medications. Patient expressed understanding and agreed with the plan. Ariel Babcock DO [address] [place] [address] CNOV Observed: 05/21/2018 Status: COMPLETED Source: [place] 8:40 AM [facility] REPOSITORY Office Visit (FAMPWS) JACKY LOPEZ ([id number]) 1975 F Date Time Provider Department 05/21/18 8:40 AM ARIEL BABCOCK FAMPWS During your visit today, we recorded the following information about you: Temperature Pulse Respiration Blood pressure 97.7 degrees 64/minute 20/minute 134/80 Weight Last Period 142 kg 04/22/18 Ariel Babcock DO 05/21/2018 9:42 AM Signed Patient presents with: Follow Up: 3 month weight HPI: Jacky Lopez is a 42 year old female who presents to the office today for review of health conditions. Concerns today: Morbid obesity, trying to cut out sugars and gluten from her diet more consistently, trying to start a probiotic Vitamin d deficiency, currently hasn;t restarted her vitamin d supplement Dyspareunia, comes and goes, heavy menstrual cycles for years, iron deficiency anemia is slightly worse, unable to tolerate oral iron supplement due to Nausea/GI upset. Hasn't seen ORTHOPHOTOGRAPHY TECHNICIAN recently, knows needs to schedule an appt Admits to not taking care of herself after her grandmother in Dec, she was like a mother to her Leg swelling, worse in summer, sits with legs down a lot at her new job at the [employer] Ms. Loepz has past history of diabetes. Since our last visit she denies excessive thirst or increased frequency of urination, chest pain or dyspnea , new or unusual visual symptoms and low sugar/hypoglycemic reactions. Follows a diabetic diet some of the time. She is not compliant with medication(s) but is tolerating med(s) without any side effects. She reports checking her glucose on a infrequent to not at all basis schedule. Patient's last HgA1C was Hemoglobin A1C (%) Date Value 05/18/2018 10.5 02/08/2017 10.5 ) Last Ophthalmology exam was within the past 12 months Ms. Lopez reports history of hyperlipidemia. Current therapy includes fenobibrate (Tricor) mg. Denies side effects of muscle weakness or achiness. Her most recent lipid panels are reviewed. Cholesterol, Total (mg/dL) Date Value 05/18/2018 223 HDL Cholesterol (mg/dL) Date Value 05/18/2018 50 LDL Cholesterol (mg/dL) Date Value 05/18/2018 129 Triglyceride (mg/dL) Date Value 05/18/2018 221 Ms. Lopez indicates a history of hypertension and states that she is feeling well and denies any symptoms referable to elevated blood pressure. Specifically denies headache, chest pain, palpitations, dyspnea and peripheral edema. Patient denies any side effects of her medication(s) and is compliant with their regimen. Last 3 Encounter BP Readings: Date: BP: 05/21/2018 134/80 05/07/2017 132/84 04/04/2017 130/84 She watches her diet for sodium, low fat and low cholesterol some of the time. She does not check BP's generally. Jacky gets minimal exercise. 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 Social History Main Topics Smoking status: Never Smoker Smokeless tobacco: Never Used Alcohol use: Yes Comment: Rarely Drug use: No Sexual activity: Yes Partners with: Male control/protection: None FAMILY HISTORY Problem Relation Age of Onset - Hypertension Maternal Grandmother - Hypertension Paternal Grandmother - Hypertension Mother - Stroke Paternal Grandmother - Thyroid Maternal Grandmother - Heart Maternal Grandmother AL - Heart Paternal Grandfather AL - Cancer Maternal Grandfather Melanoma Allergies: ALLERGIES No Known Allergies Current Meds: glimepiride (AMARYL) 4 mg tablet TAKE 1 TABLET BY MOUTH TWICE A DAY WITH MEALS JANUMET 50-1,000 mg per tablet TAKE 1 TABLET BY MOUTH TWICE DAILY WITH MEALS. losartan (COZAAR) 25 mg tablet Take 1 tablet by mouth once daily. triamterene-hydrochlorothiazide (MAXZIDE-25) 37.5-25 mg per tablet TAKE 1 TABLET BY MOUTH ONCE DAILY. dulaglutide (TRULICITY) 0.75 mg/0.5 mL pnij Inject 0.75 mg subcutaneously once each week. Inject dose once per week. Discard Pen After metoprolol tartrate, short acting, (LOPRESSOR) 25 mg tablet TAKE 1 TABLET BY MOUTH TWICE DAILY. triamcinolone acetonide (KENALOG) 0.1 % cream Apply 1 application to affected area twice daily as needed (rash on chest). Apply sparingly to area for rash/itching. fluticasone (FLONASE) 50 mcg/actuation nasal spray Use 2 Sprays in each nostril once daily. albuterol HFA (PROAIR HFA) 90 mcg/actuation inhaler Inhale 2 Puffs as instructed every 4 hours as needed. blood sugar diagnostic (BLOOD GLUCOSE TEST) test strip Test blood sugar(s) 1 times daily. Dx: DM2. Insulin: No Lancets lancets Test blood sugar(s) 1 times daily. Dx: Type 2 DM - Uncontrolled E11.65 Insulin: No flaxseed 1,000 mg cap Take 2,000 mg by mouth once daily. Brisbin-3 Fatty Acids, FISH OIL, (FISH OIL) 360-1,200 mg cap Take 2 capsules by mouth once daily. biotin 5 mg tab Take 2 tablets by mouth once daily. Chromium 200 mcg tab Take 1,000 mcg by mouth once daily. Lancets lancets Test blood sugar(s) 1 times daily. Dx: DM2. Insulin: No GLUCOSAMINE HCL AND SULFATE (GLUCOSAMINE COMPLEX ORAL) Take by mouth as directed. POTASSIUM ORAL Take by mouth as needed. ASCORBIC ACID (CHERYL-C ORAL) Take by mouth as directed. CONTRAVE 8-90 mg TbER TAKE 2 TABLETS BY MOUTH TWICE DAILY IN THE MORNING AND EVENING Fenofibrate Micronized 130 mg capsule Take 1 capsule by mouth once daily. Insulin Safety Kennard, Disp, (BD AUTOSHIELD PEN NEEDLE) 29 gauge x 3/16 ndle Use one needle for each dose. 2/day Phentermine HCl (ADIPEX-P) 37.5 mg tablet Take 1 tablet by mouth once daily. BMI 50 Review of Systems: The remainder of the review of systems is negative. PE: 05/21/18 0838 BP: 134/80 Pulse: 64 Resp: 20 Temp: 36.5 ?C (97.7 ?F) TempSrc: Left Tympanic Weight: (!) 142 kg (313 lb) Gen: AANDO, NAD, non-toxic appearing, Pleasant, cooperative, obese HEENT: NT/AC, PERRLA, EOMs intact b/l, nares clear and patent b/l, pharynx without erythema, exudate or lesions. Uvula midline.MMM Neck: supple, No cervical LAD, no thyromegaly, no carotid bruits CV: RRR, normal S1 and S2, no murmurs, no gallops, no rubs, Pulses 2+ and symmetric in UE and LE b/l Lungs: normal respiratory effort, CTA b/l, no wheezing or rhonchi or rales Abd: soft, NT, ND, +BS, no hepatosplenomegaly MS: FROM all 4 extremities Neuro: CN II-XII intact b/l, strength 5/5 b/l UE and LE, DTRs 2/4 UE and LE, sensation intact. Skin: warm, dry, intact, No rashes or lesions on exposed skin. Obese, non pitting leg edema, no calf pain Foot exam: Monofilament normal on right and left feet. ASSESSMENT/PLAN: 1. Uncontrolled type 2 diabetes mellitus without complication, without long-term current use of insulin (HCC) - ICD9: 250.02, ICD10: E11.65 (primary diagnosis) uncontrolled Poor adherence to plan of care. - Increase Trulicity - Blood glucose monitoring on a three times a day schedule - LOSARTAN 25 MG TABLET - DULAGLUTIDE 1.5 MG/0.5 ML SUBCUTANEOUS PEN INJECTOR 2. Hypercholesterolemia - ICD9: 272.0, ICD10: E78.00 - suboptimal control - Begin treatment with ezetimibe (Zetia) 10 mg - Encouraged following a low fat, low cholesterol diet. - Check fasting lipid panel and ALT in 12 weeks. - EZETIMIBE 10 MG TABLET 3. Hypertriglyceridemia - ICD9: 272.1, ICD10: E78.1 - poor control - Begin treatment with ezetimibe (Zetia) 10 mg - Encouraged following a low fat, low cholesterol diet. - Discussed the benefits of regular aerobic exercise and weight loss. - EZETIMIBE 10 MG TABLET 4. Albuminuria - ICD9: 791.0, ICD10: R80.9 - rx refilled, needs better blood glucose control as d/w her today - LOSARTAN 25 MG TABLET 5. Elevated LFTs - ICD9: 790.6, ICD10: R94.5 - related to diabetes and fatty liver, needs better glucose control 6. Essential hypertension - ICD9: 401.9, ICD10: I10 - good control - Continue current medication(s) - Encouraged dietary sodium restriction/DASH diet - Recommended regular aerobic exercise. - Recommend home blood pressure monitoring, to bring results in on next visit - Discussed need and benefit for weight loss. - Goal of BP <130/80 - METOPROLOL TARTRATE 25 MG TABLET 7. Other iron deficiency anemia - ICD9: 280.8, ICD10: D50.8 - pelvic US and f/u with ORTHOPHOTOGRAPHY TECHNICIAN - US FEMALE PELVIS TRANSABD LTD - US FEMALE PELVIS TRANSVAG 8. Dysmenorrhea - ICD9: 625.3, ICD10: N94.6 - see above - US FEMALE PELVIS TRANSABD LTD - US FEMALE PELVIS TRANSVAG 9. Bilateral leg edema - ICD9: 782.3, ICD10: R60.0 - rx prn as below - FUROSEMIDE 20 MG TABLET Ariel Babcock DO To ER if develops chest pain, shortness of breath, or severe worsening of symptoms. Discussed risks, benefits, alternatives, and potential side effects of medications. Patient expressed understanding and agreed with the plan. Ariel Babcock DO [address] [place] [address] Referring Provider: ARIEL BABCOCK [[id number]] Allergies As of Date: 05/21/2018 (No Known Allergies) Date Reviewed: 05/21/2018 Reviewed by: Jodi Patel LPN - Fully Assessed Reason for Visit: Follow Up [171] Cmt: 3 month weight Primary Visit Diagnosis:Uncontrolled type 2 diabetes mellitus without complication, without long-term current use of insulin (HCC) [E11.65] Other Visit Diagnoses:Hypercholesterolemia [E78.00] Hypertriglyceridemia [E78.1] Albuminuria [R80.9] Elevated LFTs [R94.5] Essential hypertension [I10] Other iron deficiency anemia [D50.8] Dysmenorrhea [N94.6] Bilateral leg edema [R60.0] Order(s):losartan (COZAAR) 25 mg tabletTake 1 tablet by mouth once daily.Disp: 90 tabletRfl: 3 metoprolol tartrate, short acting, (LOPRESSOR) 25 mg tabletTake 1 tablet by mouth twice daily.Disp: 180 tabletRfl: 3 dulaglutide (TRULICITY) 1.5 mg/ 0.5 ml subcutaneous pen injectorInject 1.5 mg subcutaneously once each week. Inject once per week. Discard Pen AfterDisp: 12 PenRfl: 3 ezetimibe (ZETIA) 10 mg tabletTake 1 tablet by mouth once daily.Disp: 90 tabletRfl: 3 FEMALE PELVIS TRANSABD LTD [[id number]] Order #: [id number] FUTURE FEMALE PELVIS TRANSVAG [[id number]] Order #: [id number] FUTURE furosemide (LASIX) 20 mg tabletTake 1-2 tablets by mouth once daily. As needed for swellingDisp: 180 tabletRfl: 3 Prescriptions as of 05/21/2018 Sig: LOSARTAN 25 MG TABLET Take 1 tablet by mouth once d* GLIMEPIRIDE 4 MG TABLET TAKE 1 TABLET BY MOUTH TWICE * JANUMET 50 MG-1,000 MG TABLET TAKE 1 TABLET BY MOUTH TWICE * TRIAMTERENE 37.5 MG-HYDROCHLO* TAKE 1 TABLET BY MOUTH ONCE D* TRIAMCINOLONE ACETONIDE 0.1 %* Apply 1 application to affect* FLUTICASONE 50 MCG/ACTUATION * Use 2 Sprays in each nostril * ALBUTEROL SULFATE HFA 90 MCG/* Inhale 2 Puffs as instructed * BLOOD SUGAR DIAGNOSTIC STRIPS Test blood sugar(s) 1 times d* LANCETS Test blood sugar(s) 1 times d* FLAXSEED 1,000 MG CAPSULE Take 2,000 mg by mouth once d* OMEGA-3 FATTY ACIDS-FISH OIL * Take 2 capsules by mouth once* BIOTIN 5 MG TABLET Take 2 tablets by mouth once * CHROMIUM 200 MCG TABLET Take 1,000 mcg by mouth once * LANCETS Test blood sugar(s) 1 times d* GLUCOSAMINE COMPLEX ORAL Take by mouth as directed. POTASSIUM ORAL Take by mouth as needed. CHERYL-C ORAL Take by mouth as directed. METOPROLOL TARTRATE 25 MG TAB* Take 1 tablet by mouth twice * DULAGLUTIDE 1.5 MG/0.5 ML SUB* Inject 1.5 mg subcutaneously * EZETIMIBE 10 MG TABLET Take 1 tablet by mouth once d* FUROSEMIDE 20 MG TABLET Take 1-2 tablets by mouth onc* FENOFIBRATE MICRONIZED 130 MG* Take 1 capsule by mouth once * PEN NEEDLE, DIABETIC, SAFETY * Use one needle for each dose.* PHENTERMINE 37.5 MG TABLET Take 1 tablet by mouth once d* Medication notes this encounter PHENTERMINE 37.5 MG TABLET >> Jodi Patel LPN 05/21/2018 8:44 AM >> JODI PATEL LPN SunMay 21, 2018 8:44 AM Finished Problem List As Of Date 05/21/2018 Noted Resolved DM (diabetes mellitus screen) [Z13.1] INVALID FOR*04/21/2015 HTN (hypertension) [I10] INVALID FOR* Diabetes mellitus type 2, controlled, without c*INVALID FOR* Hypercholesterolemia [E78.00] INVALID FOR* Albuminuria [R80.9] INVALID FOR* Morbid (severe) obesity due to excess calories *INVALID FOR* Prescriptions ordered this encounter Disp Refills Start End LOSARTAN 25 MG TABLET 90 t* 3 05/21/2018 Route: ORAL Sig: Take 1 tablet by mouth once daily. METOPROLOL TARTRATE 25 MG TABLET 180 * 3 05/21/2018 Route: ORAL Sig: Take 1 tablet by mouth twice daily. DULAGLUTIDE 1.5 MG/0.5 ML SUBCUTANEO* 12 P* 05/21/2018 Route: SUBCUTANEOUS Sig: Inject 1.5 mg subcutaneously once each week. Inject once per week. Discard Pen After EZETIMIBE 10 MG TABLET 90 t* 3 05/21/2018 Route: ORAL Sig: Take 1 tablet by mouth once daily. FUROSEMIDE 20 MG TABLET 180 * 3 05/21/2018 Route: ORAL Sig: Take 1-2 tablets by mouth once daily. As needed for swelling Medications Discontinued During This Encounter CONTRAVE 8-90 mg TbER 120 * 0 09/09/2017 05/21/2018 Sig: TAKE 2 TABLETS BY MOUTH TWICE DAILY IN THE MORNING AND EVENING Disc: Reason for discontinue is not on file. dulaglutide (TRULICITY) 0.75 mg/0.5 * 12 P* 3 09/12/2017 05/21/2018 Route: SUBCUTANEOUS Sig: Inject 0.75 mg subcutaneously once each week. Inject dose once per week. Discard Pen After Disc: Reason for discontinue is not on file. losartan (COZAAR) 25 mg tablet 90 t* 0 01/02/2018 05/21/2018 Route: ORAL Sig: Take 1 tablet by mouth once daily. Disc: Reason for discontinue is not on file. metoprolol tartrate, short acting, (* 180 * 1 08/15/2017 05/21/2018 Sig: TAKE 1 TABLET BY MOUTH TWICE DAILY. Disc: Reason for discontinue is not on file. Encounter Status:Closed by ARIEL BABCOCK DO on 05/21/18 ALBUMIN/CREAT RATIO Collected: 05/18/2018 Status: F Source: [place] 11:00 AM [facility] REPOSITORY TYPE CODE TESTS RESULT OUT OF REFERENCE UNITS RANGE LAB UCRR 20-300 mg/dL Creatinine,Ur 117.2 ine,Ran LAB UALBR 0.0-23.0 mg/L High Albumin Urine 136.7 Random LAB UALBCR 0-30 mg/g High Albumin/Creat 117 Ratio Result Comment: 30 to 300 mg/g indicates an increased risk for diabetic nephropathy. Greater than 300 mg/g is consistent with clinical nephropathy. (Am J Kidney Disease 1995, 25:107) Performed By: #### UACR #### [facility] [address] [place], [place] [address] ALBUMIN URINE RANDOM Collected: 05/18/2018 Status: F Source: [place] 11:00 AM [facility] REPOSITORY TYPE CODE TESTS RESULT OUT OF REFERENCE UNITS RANGE LAB UALBR 0.0-23.0 mg/L High Albumin Urine 135.5 Random Performed By: #### UALBR #### [facility] [address] [place], [place] [address] CBC AND DIFFERENTIAL Collected: 05/18/2018 Status: F Source: [place] 10:53 AM [facility] REPOSITORY TYPE CODE TESTS RESULT OUT OF REFERENCE UNITS RANGE LAB WBC 3.70-11.00 k/uL WBC 7.53 LAB RBC 3.90-5.20 m/uL RBC 4.85 LAB HGB 11.5-15.5 g/dL Low Hemoglobin 10.9 LAB HCT 36.0-46.0 % Hematocrit 36.8 LAB MCV 80.0-100.0 fL Low MCV 75.9 LAB MCH 26.0-34.0 pG Low MCH 22.5 LAB MCHC 30.5-36.0 g/dL Low MCHC 29.6 LAB RDWCV 11.5-15.0 % RDW-CV High 15.3 LAB PLTCT 150-400 k/uL Platelet Count 346 LAB MPV 9.0-12.7 fL MPV 10.7 LAB ANEUT % Neut% 51.8 LAB AANEUT 1.45-7.50 k/uL Abs Neut 3.90 LAB ALYMP % Lymph% 33.3 LAB AALYMP 1.00-4.00 k/uL Abs Lymph 2.51 LAB AMONO % Marion% 8.6 LAB AAMONO <0.87 k/uL Abs Marion 0.65 LAB AEOS % Eosin% 4.8 LAB AAEOS <0.46 k/uL Abs Eosin 0.36 LAB ABASO % Baso% 1.5 LAB AABASO <0.11 k/uL Abs Baso High 0.11 LAB AUNRBC 0 /100 WBC NRBCs 0.0 LAB ABNRBC <0.01 k/uL Absolute nRBC <0.01 LAB DTYP DTYPE Auto Diff Performed By: #### CBCDIF, CMP, LIPB, B12, TSH, VITD, HBA1C #### [facility] [address] [place], [place] [address] COMP METABOLIC PANEL Collected: 05/18/2018 Status: F Source: [place] 10:53 AM [facility] REPOSITORY TYPE CODE TESTS RESULT OUT OF REFERENCE UNITS RANGE LAB TP 6.3-8.0 g/dL Protein, Total 7.2 LAB ALB 3.9-4.9 g/dL Albumin 4.0 LAB CA 8.5-10.2 mg/dL Calcium, Total 9.3 LAB TBIL 0.2-1.3 mg/dL Bilirubin, Total 0.2 LAB ALKP 32-117 U/L Alkaline Phosphatase 61 LAB AST 13-35 U/L AST High 111 LAB GLU 74-99 mg/dL Glucose High 248 Result Comment: The [place] Diabetes Association (ADA) provides guidance for cutoff values for fasting glucose and random glucose. The ADA defines fasting as no caloric intake for at least 8 hours. Fas ting plasma glucose results between 100 to 125 mg/dL indicate increased risk for diabetes (prediabetes). Fasting plasma glucose results greater than or equal to 126 mg/dL meet the criteria for diagnosis of diabetes. In the absence of unequivocal hyperglycemia, results should be confirmed by repeat testing. In a patient with classic symptoms of hyperglycemia or hyperglycemic crisis, random plasma glucose results greater than or equal to 200 mg/dL meet the criteria for diagnosis of diabetes. Reference: Standards of Medical Care in Diabetes 2016, [employer] Diabetes Association. Diabetes Care. 2016.39(Suppl 1). LAB BUN 7-21 mg/dL BUN 10 LAB CRET 0.58-0.96 mg/dL Low Creatinine 0.55 LAB NA 136-144 mmol/L Low Sodium 135 LAB K 3.7-5.1 mmol/L Potassium 4.2 LAB CL 97-105 mmol/L Low Chloride 96 LAB CO2 22-30 mmol/L CO2 26 LAB AGAP 9-18 mmol/L Anion Gap 13 LAB ALT 7-38 U/L ALT High 92 LAB GFRAA eGFR- Amer. >60 LAB GFRNAA . eGFR-All Other Races >60 Result Comment: eGFR (Estimated GFR) Units of measure: mL/min/1.73 meters squared eGFR is derived from the reexpressed MDRD Study equation using the following parameters: serum creatinine, age, gender and race. The creatinine assay has been calibrated to be traceable to IDMS. An eGFR <60 mL/min/1.73m2 for >3 months is consistent with chronic kidney disease. Refer to KDOQI guidelines for clinical interpretation. In patients with unstable renal function, e.g. those with acute kidney injury, the eGFR may not accurately reflect actual GFR. Performed By: #### CBCDIF, CMP, LIPB, B12, TSH, VITD, HBA1C #### [facility] [address] [place] [address] LIPID PANEL, BASIC Collected: 05/18/2018 Status: F Source: [place] 10:53 AM [facility] REPOSITORY TYPE CODE TESTS RESULT OUT OF REFERENCE UNITS RANGE LAB CHOL <200 mg/dL Cholesterol High 223 Result Comment: <200 mg/dL, Desirable 200-239 mg/dL, Borderline high >239 mg/dL, High LAB TRIGLY <150 mg/dL Triglyceride High 221 Result Comment: <150 mg/dL, Normal 150-199 mg/dL, Borderline high 200-499 mg/dL, High >499 mg/dL, Very high LAB HDL >39 mg/dL HDL-Cholesterol 50 Result Comment: 40-59 mg/dL, Acceptable >59 mg/dL, High: Negative risk factor for coronary heart disease <40 mg/dL, Low: Positive risk factor for coronary heart disease LAB LDL <100 mg/dL LDL-Cholesterol High 129 Result Comment: <100 mg/dL, Optimal 100-129 mg/dL, Near optimal/above optimal 130-159 mg/dL, Borderline high 160-189 mg/dL, High >189 mg/dL, Very high Secondary prevention optimal LDL Cholesterol levels are recommended to be < 70 mg/dL LAB NONHDL <130 mg/dL Non HDL High Cholesterol 173 Result Comment: <130 mg/dL, Optimal 130-159 mg/dL, Near optimal/above optimal 160-189 mg/dL, Borderline high 190-219 mg/dL, High >219 mg/dL, Very high Secondary prevention optimal non HDL Cholesterol levels are recommended to be < 100 mg/dL LAB FT hrs Fasting Time 10 LAB VLDL <30 mg/dL High VLDL Cholesterol 44 LAB TCHDL <5.10 TC:HDL Ratio 4.46 LAB LDLHDL <2.54 High LDL:HDL Ratio 2.58 Result Comment: Reference: 1. National Cholesterol Education Program ATP III Guideline At-A-Glance Quick Desk Reference: National Heart, Lung, and Blood [place]. National Institutes of Health. 2001: NIH Publication No. 01-3305. 2. An International Atherosclerosis Society position paper: global recommendations for the management of dyslipidemia: executive summary, Atherosclerosis. 2014: 232(2):410-413. Performed By: #### CBCDIF, CMP, LIPB, B12, TSH, VITD, HBA1C #### [facility] [facility] [address] [place], [place] [address] VITAMIN B12 Collected: 05/18/2018 Status: F Source: ANGORA 10:53 AM [facility] REPOSITORY TYPE CODE TESTS RESULT OUT OF REFERENCE UNITS RANGE LAB B12 232-1245 pg/mL Vitamin B12 334 Performed By: #### CBCDIF, CMP, LIPB, B12, TSH, VITD, HBA1C #### [facility] [address] [place] [id number] TSH Collected: 05/18/2018 Status: F Source: ANG[place] 10:53 AM [facility] REPOSITORY TYPE CODE TESTS RESULT OUT OF RANGE REFERENCE UNITS LAB TSH 0.400-5.500 uU/mL TSH 1.790 Result Comment: If the patient is , TSH reference range varies by gestational period: First Trimester 0.100-2.500 uU/mL Second Trimester 0.200-3.000 uU/mL Third Trimester 0.300-3.000 uU/mL References: 1. Castorena L, Delroy M, Mateusz HERNDON, et al. Management of Thyroid Dysfunction during and : An Endocrine Society Clinical Practice Guideline. J Clin Endocrinol Metab, 2012:97:3428-3517. 2. Ibrahima CORCORAN. Overview of thyroid disease in . UpToDate. 2016. Accessed on May 05, 2016. Performed By: #### CBCDIF, CMP, LIPB, B12, TSH, VITD, HBA1C #### [facility] [address] [place] [address] VITAMIN D 25 HYDROXY Collected: 05/18/2018 Status: F Source: AN[place] 10:53 AM [facility] REPOSITORY TYPE CODE TESTS RESULT OUT OF REFERENCE UNITS RANGE LAB VITD 31.0-80.0 ng/mL Vitamin D 25 32.0 Hydroxy Result Comment: Classification of 25 [place] Vitamin D status: Insufficiency/Moderate Deficiency: < or = 30 ng/mL Sufficiency/Optimal Levels: 31 to 80 ng/mL Toxicity: > 100 ng/mL Test performed by chemiluminescent immunoassay. Performed By: #### CBCDIF, CMP, LIPB, B12, TSH, VITD, HBA1C #### [facility] [address] [place], [place] [id number] HEMOGLOBIN A1C Collected: 05/18/2018 Status: F Source: [place] 10:53 AM [facility] REPOSITORY TYPE CODE TESTS RESULT OUT OF REFERENCE UNITS RANGE LAB HGBA1C 4.3-5.6 % High Hemoglobin A1c 10.5 LAB HBA0 mg/dL Est. Average Glucose 255 Result Comment: eAG: (Estimated average glucose) is a calculated value from HgbA1c and is inbound customer service representative of the average blood glucose level in the last 2-3 month period. Performed By: #### CBCDIF, CMP, LIPB, B12, TSH, VITD, HBA1C #### [facility] [address] [place] [id number] PROGRESS Observed: 01/07/2018 Status: COMPLETED Source: [place] 2:41 PM [facility] REPOSITORY HNO ID: [id number] Author: Benigno Martinez (Rn) Service: (none) Author Type: Registered Nurse Type: Progress Notes Filed: 01/21/2018 2:54 PM Note Text: PRIMARY CARE COORDINATION QUICK NOTE Provider Action/FYI Call to Pt with Pcp Appt reminder for 01/09/18, Pt stated just getting back into [place], noted if unable to get labs drawn prior to Appt can have them drawn on day of Appt. Pt verbalized understanding. Patient identified by name and date . Michelle Pelaez RN January 07, 2018 2:41 PM CNPTOUTREACH Observed: 01/07/2018 Status: COMPLETED Source: [place] 12:00 AM [facility] REPOSITORY Patient Outreach (FAMPWS) JACKY LOPEZ ([id number]) 1975 F Date Time Provider Department 01/07/18 BENIGNO MARTINEZ (RN) FAMPWS During your visit today, we recorded the following information about you: Michelle Pelaez RN 01/21/2018 2:54 PM Signed PRIMARY CARE COORDINATION QUICK NOTE Provider Action/FYI Call to Pt with Pcp Appt reminder for 01/09/18, Pt stated just getting back into [place], noted if unable to get labs drawn prior to Appt can have them drawn on day of Appt. Pt verbalized understanding. Patient identified by name and date . 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 Chronic Care [3610] Cmt: Appt, Labs Prescriptions as of 01/07/2018 Sig: LOSARTAN 25 MG TABLET Take 1 tablet by mouth once d* TRIAMTERENE 37.5 MG-HYDROCHLO* TAKE 1 TABLET BY MOUTH ONCE D* DULAGLUTIDE 0.75 MG/0.5 ML MARTIN* Inject 0.75 mg subcutaneously* CONTRAVE 8 MG-90 MG TABLET,EX* TAKE 2 TABLETS BY MOUTH TWICE* METOPROLOL TARTRATE 25 MG TAB* TAKE 1 TABLET BY MOUTH TWICE * GLIMEPIRIDE 4 MG TABLET Take 1 tablet by mouth twice * FENOFIBRATE MICRONIZED 130 MG* Take 1 capsule by mouth once * PEN NEEDLE, DIABETIC, SAFETY * Use one needle for each dose.* TRIAMCINOLONE ACETONIDE 0.1 %* Apply 1 application to affect* PHENTERMINE 37.5 MG TABLET Take 1 tablet by mouth once d* FLUTICASONE 50 MCG/ACTUATION * Use 2 Sprays in each nostril * SITAGLIPTIN 50 MG-METFORMIN 1* Take 1 tablet by mouth twice * ALBUTEROL SULFATE HFA 90 MCG/* Inhale 2 Puffs as instructed * BLOOD SUGAR DIAGNOSTIC STRIPS Test blood sugar(s) 1 times d* LANCETS Test blood sugar(s) 1 times d* FLAXSEED 1,000 MG CAPSULE Take 2,000 mg by mouth once d* OMEGA-3 FATTY ACIDS-FISH OIL * Take 2 capsules by mouth once* BIOTIN 5 MG TABLET Take 2 tablets by mouth once * CHROMIUM 200 MCG TABLET Take 1,000 mcg by mouth once * LANCETS Test blood sugar(s) 1 times d* GLUCOSAMINE COMPLEX ORAL Take by mouth as directed. POTASSIUM ORAL Take by mouth as needed. CHERYL-C ORAL Take by mouth as directed. Problem List As Of Date 01/07/2018 Noted Resolved DM (diabetes mellitus screen) [Z13.1] INVALID FOR*04/21/2015 HTN (hypertension) [I10] INVALID FOR* Diabetes mellitus type 2, controlled, without c*INVALID FOR* Hypercholesterolemia [E78.00] INVALID FOR* Albuminuria [R80.9] INVALID FOR* Encounter Status:Closed by MICHELLE PELAEZ on 01/21/18 URGENT CARE VISIT Observed: 01/03/2018 Status: F Source: [place] REPORT 6:00 PM [facility] REPOSITORY [facility] [address] [place] [address] [address] [place] [address] OFFICE VISIT Date of Service: 01/03/18 MR#: [id number] Acct: [id number] Name: JACKY LOPEZ Rep #: [id number] : 1975 Provider: Earnest GAN Age/Sex: 42/F [facility] [facility] Status: Signed Intake Vital Signs01/03/18 Height 5 ft 7 in 01/03/18 Weight: 307 lb 01/03/18 Body Mass Index (BMI) 48.0 01/03/18 Blood Pressure 138/84 Intake Visit Reasons: ILL 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 Bronchitis J40 Plan See attached scanned document dated January 03, 2018. Medications New: Coding Level of Care Code Off vis,new,level 3 Diagnoses Bronchitis J40 01/03/18 1800 <Electronically signed by Earnest GAN> Date Earnest GAN Cosigner Signature: Date (if applicable) CC: OBSOLETE Observed: 12/15/2017 Status: COMPLETED Source: YAIR 12:00 AM [facility] REPOSITORY Refill (FAMPWS) JACKY LOPEZ ([id number]) 1975 F Date Time Provider Department 12/15/17 [facility] During your visit today, we recorded the following information about you: Meagan Brady LPN 12/17/2017 11:09 AM Signed Last office visit: 11/09/17 Next office visit: 12/18/17 Patient has been identified by name and date of : Yes Pending Prescriptions Disp Refills TRIAMTERENE 37.5 MG-HYDROCHLOROTHIAZIDE 25 MG TABLET 90 tablet 3 Sig: TAKE 1 TABLET BY MOUTH ONCE DAILY. LUIS ENRIQUE: Yes RX INSTRUCTIONS: Pharmacy initiated this request. No need to notify patient. Meagan Brady LPN Allergies As of Date: 12/15/2017 (No Known Allergies) Date Reviewed: 05/07/2017 Reviewed by: Bhargav Perez Ma - Fully Assessed Reason for Visit: Refill Request [94] Order(s):triamterene-hydrochlorothiazide (MAXZIDE-25) 37.5- 25 mg per tabletTAKE 1 TABLET BY MOUTH ONCE DAILY.Disp: 90 tabletRfl: 3 Prescriptions as of 12/15/2017 Sig: TRIAMTERENE 37.5 MG-HYDROCHLO* TAKE 1 TABLET BY MOUTH ONCE D* LOSARTAN 25 MG TABLET TAKE 1 TABLET BY MOUTH ONCE D* DULAGLUTIDE 0.75 MG/0.5 ML MARTIN* Inject 0.75 mg subcutaneously* CONTRAVE 8 MG-90 MG TABLET,EX* TAKE 2 TABLETS BY MOUTH TWICE* METOPROLOL TARTRATE 25 MG TAB* TAKE 1 TABLET BY MOUTH TWICE * GLIMEPIRIDE 4 MG TABLET Take 1 tablet by mouth twice * FENOFIBRATE MICRONIZED 130 MG* Take 1 capsule by mouth once * PEN NEEDLE, DIABETIC, SAFETY * Use one needle for each dose.* TRIAMCINOLONE ACETONIDE 0.1 %* Apply 1 application to affect* PHENTERMINE 37.5 MG TABLET Take 1 tablet by mouth once d* FLUTICASONE 50 MCG/ACTUATION * Use 2 Sprays in each nostril * SITAGLIPTIN 50 MG-METFORMIN 1* Take 1 tablet by mouth twice * ALBUTEROL SULFATE HFA 90 MCG/* Inhale 2 Puffs as instructed * BLOOD SUGAR DIAGNOSTIC STRIPS Test blood sugar(s) 1 times d* LANCETS Test blood sugar(s) 1 times d* FLAXSEED 1,000 MG CAPSULE Take 2,000 mg by mouth once d* OMEGA-3 FATTY ACIDS-FISH OIL * Take 2 capsules by mouth once* BIOTIN 5 MG TABLET Take 2 tablets by mouth once * CHROMIUM 200 MCG TABLET Take 1,000 mcg by mouth once * LANCETS Test blood sugar(s) 1 times d* GLUCOSAMINE COMPLEX ORAL Take by mouth as directed. POTASSIUM ORAL Take by mouth as needed. CHERYL-C ORAL Take by mouth as directed. Problem List As Of Date 12/15/2017 Noted Resolved DM (diabetes mellitus screen) [Z13.1] INVALID FOR*04/21/2015 HTN (hypertension) [I10] INVALID FOR* Diabetes mellitus type 2, controlled, without c*INVALID FOR* Hypercholesterolemia [E78.00] INVALID FOR* Albuminuria [R80.9] INVALID FOR* Prescriptions ordered this encounter Disp Refills Start End TRIAMTERENE 37.5 MG-HYDROCHLOROTHIAZ* 90 t* 3 12/17/2017 Sig: TAKE 1 TABLET BY MOUTH ONCE DAILY. Medications Discontinued During This Encounter triamterene-hydrochlorothiazide (MAX* 90 t* 4 10/20/2016 12/17/2017 Route: ORAL Sig: Take 1 tablet by mouth once daily. Disc: Reason for discontinue is not on file. Encounter Status:Closed by ARIEL BABCOCK DO on 12/17/17 ALLERGIES ALLERGIES DATE TYPE / CODE NAME / CODE REACTION SEVERITY SOURCE 11/15/2018 Drug No Known Unknown [facility] Allergy/416 Allergies/Y14641 Hospital 199871(SNOM 0388(RXNORM) Repository ED CT) Drug NO KNOWN [facility] Class/37432 ALLERGIES [facility] 1003(SNOMED Repository CT) ENCOUNTERS ENCOUNTERS ADMIT/DISCHARGE ACCOUNT ADMITTING ENCOUNTER LOCATION SOURCE NUMBER CLASS 11/15/2018/11/15/20 [id number] Ambulatory BMSBuilding:Jess Luciano 20 [address]NOW [facility] Hospital Repository 10/30/2018 [id number] Ambulatory [facility] ing:[facility]SPEC Repository 10/29/2018/10/29/20 [id number] Ambulatory BMSBuilding:Jess Luciano 20 [address].NOW [facility] Hospital Repository 08/26/2018/08/27/20 [id number] Ambulatory [address] Repository 08/22/2018/08/23/20 [id number] Ambulatory [address] Repository 05/29/2018/05/29/20 [id number] Ambulatory [address] Repository 05/21/2018/05/23/20 [id number] Ambulatory [address] Repository 05/18/2018/05/18/20 [id number] Ambulatory [address] Repository 01/03/2018/01/03/20 [id number] Ambulatory BMSBuilding:Jess Luciano 20 [place] [facility] [place] PAYERS PAYERS ENCOUNTER GUARANTOR PAYER SUBSCRIBER SOURCE 11/15/2018 JACKY [id number] Primary EFREN TRINIDADB: [place] SANCHEZ [facility] [id number] Number: [facility] [address]Jfm: (550) [id number] Repository [phone] (LN) patti Date:2383-74-84GL [address] [place] [address]EU: 11/15/2018 Secondary NOT GIVENUNK [place] Insurance:SELF PAY [facility] Number: Effective Repository Date:2018-11-15 10/30/2018 JACKY [id number] Primary EFREN ABDIB: [place] SHEILA Insurance:[facility] [id number] Number: [facility] [id number]: (084) [id number] Repository [phone] (CT) patti Date:2822-58-56SW [address] [place] [address]WN: 10/30/2018 Secondary NOT GIVENUNK [place] Insurance:SELF PAY [facility]: Effective Repository Date:2018-10-30 10/29/2018 JACKY QUINONES3 Primary EFREN ABDIB: [place] SHEILA [id number] [place] [facility]: [facility] [id number]: 419 [id number] Repository [phone] () patti Date:9189-33-69WQ [address] [place] [address]MW: 10/29/2018 Secondary NOT GIVENUNK [place] Insurance:SELF PAY [facility] Number: Effective Repository Date:2018-10-29 01/03/2018 JACKY [id number] Primary EFREN ABDIB: [place] SHEILA [facility] [id number] Number: Hospital [id number]: (419 [id number] Repository [phone] () patti Date:7594-43-33IK [address], [place] [address]EK: 01/03/2018 Secondary NOT GIVENUNK [place] Insurance:SELF PAY [facility] Number: Effective Repository Date:2018-01-03
== END ==
PROVIDERS: Referring Provider Physician Assistant Surgical; Visit Provider Physician Assistant Surgical
DX: J02.9 Acute pharyngitis, unspecified (principal)
CPT/HCPCS: 87081

== ENCOUNTER → 2021-04-22 18:10 | Outpatient (CLI) | payer BC, SELFPAY ==
[2021-04-22 16:02] VITALS: BMI 48.0
[2021-04-22 18:11] LABS: Mucous, Urine 0 SEEN /hpf (<or=2+)
[2021-04-22 18:15] LABS: Color, Urine Yellow (Yellow); Glucose, Dipstick 100 mg/dl (Normal); Ketone-Dipstick Negative (Negative); Leukocyte Esterase-Dipstick 500 /ul (Negative); Nitrite-Dipstick Negative (Negative); Occult Blood-Urine 250 /ul (Negative); Protein-Dipstick 30 mg/dl (Negative); Urine Bilirubin Dipstick Negative (Negative); Urine Clarity Cloudy (Clear); Urine Urobilinogen Normal (Normal); Urine pH 6.5 (5.0 - 8.0)
[2021-04-22 18:21] LABS: Red Blood Cells-Urine 0-5 SEEN /hpf (0-5); Squamous Epithelial Cells - UA 0-5 SEEN /hpf (5-10); White Blood Cells >100 SEEN /hpf (0-5)
[2021-04-22 18:22] LABS: Bacteria 1+ /hpf (None Seen)
== END ==
PROVIDERS: Visit Provider Physician Assistant Surgical
DX: N39.0 Urinary tract infection, site not specified (principal)
CPT/HCPCS: 81001; 87086; 87088; 87186

== ENCOUNTER 2021-11-26 12:06 | Outpatient (CLI) | payer BC, SELFPAY ==
[2021-11-26 12:19] VITALS: BP 145/92; PULSE 83; RESP 16; TEMP 36.9; O2SAT 98; BMI 44.6
[2021-11-26] MEDS: 0.9% Saline Lock 10 ML Syringe IV (12:36)
[2021-11-26 12:58] VITALS: BP 131/79; PULSE 75; RESP 16; TEMP 37.1; O2SAT 96
[2021-11-26 13:49] VITALS: BP 125/84; PULSE 74; RESP 16; TEMP 36.9; O2SAT 96
== END 2021-11-26 23:59 | disposition home or self-care (01) ==
LOC: MS3OUT 12:07 → MS3 12:08
PROVIDERS: Referring Provider Nurse Practitioner Adult Health; Visit Provider Nurse Practitioner Adult Health
DX: Z23 Encounter for immunization (principal); U07.1 COVID-19
CPT/HCPCS: J7050; M0243; A4216; Q0244

== ENCOUNTER → 2022-04-25 | Outpatient (CLI) | payer BC, SELFPAY ==
[2022-04-25 19:49] LABS: M R Staph aureus DNA By PCR Negative (Negative); Probe Check PASS; Specimen Processing Control PASS; Staph aureus DNA By PCR POSITIVE (Negative)
== END | disposition home or self-care (01) ==
PROVIDERS: Visit Provider Podiatrist
DX: L03.90 Cellulitis, unspecified (principal)
CPT/HCPCS: 87070; 87075; 87077; 87186; 87205; 87640

== ENCOUNTER 2022-10-13 14:26 | Outpatient (CLI) | payer BC, SELFPAY ==
[2022-10-13 14:52] VITALS: BP 154/82; PULSE 71; RESP 18; TEMP 36.4; O2SAT 97; BMI 44.8
[2022-10-13] MEDS: 0.9% Saline Lock 10 ML Syringe IV ×3 (14:58→15:08)
[2022-10-13] MEDS: BEBTELOVIMAB 175 MG/2 ML VIAL IV (15:04)
[2022-10-13 15:34] VITALS: BP 140/81; PULSE 64; RESP 16; TEMP 36.7; O2SAT 99
[2022-10-13 15:55] VITALS: BP 135/81; PULSE 66; RESP 16; TEMP 36.6; O2SAT 98
== END 2022-10-13 16:04 | disposition home or self-care (01) ==
LOC: MS3OUT 14:27 → MS2 14:27
PROVIDERS: Referring Provider Nurse Practitioner Acute Care; Visit Provider Nurse Practitioner Acute Care
DX: U07.1 COVID-19 (principal)
CPT/HCPCS: M0222; Q0222; A4216